=== PATIENT | female | born 1955 | race Caucasian/White ===

== ENCOUNTER 2018-07-10 14:44 | Emergency (ER) | payer MEDICARE, SELFPAY ==
--- NOTE | 2018-07-10 14:56 | NUR.NOTE ---
last might pt developed pain with urination
[2018-07-10 14:58] LABS: Bilirubin Small (Negative); Blood Large (Negative); Clarity Cloudy; Glucose Negative (Negative); Ketones Trace mg/dL (Negative); Leukocyte Esterase Small (Negative); Nitrite Negative (Negative); Urobilinogen 0.2 EU/dL (Up TO 0.2)
[2018-07-10 14:59] VITALS: BP 149/67; PULSE 90; RESP 18; TEMP 37.6; O2SAT 95
--- NOTE | 2018-07-10 15:09 | ED.GENADUL_ITS ---
Discharge Plan Disposition Patient Disposition: HOME Condition: Good Discharge Details Chief Complaint: Urinary Clinical Impression: Acute UTI, Hematuria Primary Care Provider: Michelle Gonzales ED Provider: Maximo Castro Home Meds and New Rx's Prescriptions: New cephalexin [Keflex] 500 mg capsule 500 mg PO BID Qty: 20 RF: 0 Discharge Instructions Instructions: Urinary Tract Infection in Women (ED), Hematuria (ED) Additional Instructions: Please take the antibiotic as directed. If you notice any worsening of your symptoms, or any new symptoms such as vomiting, diarrhea, fever, chills, shortness of breath, chest pain, numbness, weakness, or fainting , please return immediately to the emergency department for reevaluation. Please follow up with your primary care provider as soon as possible for reassessment and reevaluation. As always, it was a pleasure participating in your medical care today. Referrals: Michelle Gonzales MD, [place] [Primary Care Provider] - Medical Decision Making This is a 63-year-old female with a past medical history of fibromyalgia, Lyme disease, and irritable bowel syndrome no history of kidney stones, who presents today for evaluation of mild pressure, increased urinary frequency, and burning with urination starting this morning. She did notice some small blood in her urine. She denies any history of kidney stones. She denies any flank pain, abdominal pain or tenderness. She has no concerning red flags of fever, chills, or tachycardia. Vital signs are reassuring. Urinalysis shows signs and symptoms concerning for urinary tract infection, leuk esterase is small, she does have notable protein, and large blood. I did discuss with the patient further workup, including imaging, at this point the patient clearly states that she would not like any additional imaging or workup in that regard. With signs and symptoms clinically inconsistent with urolithiasis, and acute abdominal pathology, fluid overload, or signs of peripheral edema or severe glomerular nephropathy or nephritis clinically and with the patient requesting no additional workup or imaging, I feel that treatment with antibiotics for UTI is very reasonable and clinically appropriate in this current setting. 3:20 PM Patient's urinalysis does show evidence of blood, as well as small leuk esterase. High-powered field is obstructed by the amount of RBCs. I discussed again with the patient that there may be a malignancy, or other acute pathology causing his hematuria, and the patient has persistent that she does not want any additional imaging or laboratory workup at this time. We discussed risks and benefits of this and the patient understand. Discussed with the patient the imp ortance of close follow-up with her primary care provider at [facility], especially in the setting if her hematuria does not resolve with the antibiotic. Also discussed the importance of close return if she has any continuation or worsening of her symptoms. I have extensively reviewed the treatment plan and discharge instructions with the patient and their family. I have addressed all patient concerns at this time. The patient and family was made aware of what symptoms to monitor for that would warrant a return to the emergency department. Discussed the plan with the patient and family, they demonstrate verbal understanding and agreement with our assessment and plan at this time. HPI General Date/Time Provider Initiated Documentation: 07/10/18 14:45 . HPI Narrative: This is a 63-year-old female with past medical history of irritable bowel disease, Lyme disease, and fibromyalgia who presents today for evaluation of burning in pressure in her groin. Symptoms started this morning. She noted some associated blood tinge in her urine at that time. She has had blood in her urine in the past, but denies any history of kidney stones, currently she states she has no abdominal pain, flank pain, nausea vomiting or change in bowel movements. She denies any hematochezia, melena, hematemesis, or acholic stool. She denies any other complaints at this time. No other modifying factors. Related Data Home Medications Medication Instructions Recorded Confirmed cephalexin [Keflex] 500 mg PO BID #20 cap 07/10/18 Previous Rx's Medication Instructions Recorded cephalexin [Keflex] 500 mg PO BID #20 cap 07/10/18 Allergies Allergy/AdvReac Type Severity Reaction Status Date / Time Sulfa (Sulfonamide Allergy Unverified 07/10/18 15:02 Antibiotics) PCNepinephrine mold, ragweed Allergy Skin Rash Uncoded 07/10/18 15:02 General Stated Complaint: Urinary EZRA: 4 Review of Systems Review of Systems All systems reviewed & are unremarkable except as noted in HPI and below PFSH Social History Smoking/Tobacco Use Status: Current every day Tobacco Type: cigarettes Smoking cigarettes per day: 8 Alcohol Intake: never Drug use: Never Substance use type: does not use Do you feel safe at home: Yes Do you feel safe in your relationship?: Yes Exam Narrative Exam Narrative: 1.Const: Well-nourished, Well-developed, appearing stated age 2.Eyes: PERRL, no conjunctival injection, and symmetrical lids. 3.ENT: Atraumatic external nose and ears. Moist MM. Neck: Symmetric, trachea midline, No thyromegaly. 4.CVS: +S1/S2, No murmurs or gallops. Peripheral pulses 2+ and equal in all extremities. Brisk capillary refill in all extremities. 5.RESP: Unlabored respiratory effort. Clear to auscultation bilaterally. No wheezes rales or rhonchi 6.GI: Soft, Nontender/Nondistended, No hepatosplenomegaly. No guarding or rebound. No flank or CVA tenderness. No guarding or rebound. No pain at McBurney's point, negative Kilgore sign, no suprapubic tenderness. 7.MSK: Normocephalic/Atraumatic, Extremities w/o deformity or ttp No cyanosis or clubbing, Normal movement of all extremities 8.Skin: Warm, Dry. No rashes or lesions. 9.Neuro: quotation checker II-XII grossly intact. Sensation grossly intact, no focal neurologic deficits. 10.Psych: (AAO) x3. Appropriate mood and affect Course Vital Signs Temperature 37.6 C H 07/10/18 14:59 Pulse 90 07/10/18 14:59 Respiratory Rate 18 07/10/18 14:59 Blood Pressure 149/67 H 07/10/18 14:59 Pulse Oximetry 95 07/10/18 14:59 Temperature 37.6 C H 07/10/18 14:59 Temperature Source Skin 07/10/18 14:59 Pulse 90 07/10/18 14:59 Respiratory Rate 18 07/10/18 14:59 Blood Pressure 149/67 H 07/10/18 14:59 Blood Pressure Position Sitting 07/10/18 14:59 Pulse Oximetry 95 07/10/18 14:59 Oxygen Delivery Method Room Air 07/10/18 14:59 Oxygen Flow Rate 0 07/10/18 14:59 Pain Level 3 07/10/18 14:59 Lab/Test Results Lab/Test Results: Laboratory Tests Range/Units 07/10/18 14:50 Urine Color (Yellow) Brown Urine Clarity Cloudy Urine pH (5-8) 6.0 Ur Specific [place] (1.005-1.025) 1.020 Urine Protein (Negative) mg/dL 100 H Urine Ketones (Negative) mg/dL Trace H Urine Blood (Negative) Large H Urine Nitrite (Negative) Negative Urine Bilirubin (Negative) Small H Urine Urobilinogen (Up TO 0.2) EU/dL 0.2 Ur Leukocyte Esterase (Negative) Small H Urine Glucose (Negative) mg/dL Negative
[2018-07-10 15:11] LABS: RBC >50 (0-2)
[2018-07-10 15:13] LABS: C & S Indicated? Color Interference
[2018-07-10 15:26] VITALS: BP 149/67; PULSE 90; RESP 18; TEMP 37.5; O2SAT 95
[2018-07-10] MEDS: Cephalexin 500 MG CAP PO (15:28)
== END 2018-07-10 15:28 | disposition home or self-care (01) ==
PROVIDERS: Emergency Provider Student in an Organized Health Care Education/Training Program; PCP Family Medicine
DX: N39.9 Disorder of urinary system, unspecified (principal); R31.9 Hematuria, unspecified
CPT/HCPCS: 99283; 81003; 81015

== ENCOUNTER 2018-07-15 13:51 | Outpatient (REF) | payer MEDICARE, SELFPAY ==
[2018-07-15 14:54] LABS: Bilirubin Negative (Negative); Blood Large (Negative); Clarity Clear; Glucose Negative (Negative); Ketones Negative (Negative); Leukocyte Esterase Trace (Negative); Nitrite Negative (Negative); Specific Gravity 1.015 (1.005-1.025); Urobilinogen 0.2 EU/dL (Up TO 0.2)
[2018-07-15 15:05] LABS: RBC >50 (0-2)
[2018-07-15 15:06] LABS: C & S Indicated? Yes
== END 2018-07-15 14:11 ==
LOC: LBN 13:51
PROVIDERS: PCP Nurse Practitioner Family; Visit Provider Nurse Practitioner Family
DX: R31.9 Hematuria, unspecified (principal)
CPT/HCPCS: 81003; 81015; 87086

== ENCOUNTER 2018-07-22 15:46 | Outpatient (CLI) | payer MEDICARE, SELFPAY ==
[2018-07-22 18:19] LABS: Abs Immature Grans 0.02 k/cumm (0.0-0.09); Absolute Basophil Count 0.04 k/cumm (0.0-0.2); Absolute Eosinophil Count 0.14 k/cumm (0.0-0.7); Absolute Lymphocyte Count 2.86 k/cumm (1.2-3.4); Absolute Monocyte Count 0.77 k/cumm (0.11-0.7); Absolute Neutrophil Count 5.35 k/cumm (1.2-6.7); Basophils % 0.4; Eosinophils % 1.5; HCT 44.4 % (36.0-46.0); HGB 15.1 g/dL (12.0-15.5); Immature Grans % 0.2; Lymphocytes % 31.2; Mean Corpuscular Hemoglobin 32.2 pg (27.0-33.0); Mean Corpuscular Volume 94.7 fL (80-95); Mean Platelet Volume 10.4 fL (8.0-11.0); Monocytes % 8.4; Neutrophils % 58.3; Platelet Count 337 x1000/uL (130-400); RBC 4.69 m/cumm (4.00-5.20); RBC Distribution Width 13.4 % (11.7-14.6); White Blood Cell Count 9.18 k/cumm (4.4-10.8)
[2018-07-22 18:43] LABS: ALT 22 U/L (12-78); AST 17 U/L (15-37); Albumin 4.3 g/dL (3.4-5.0); Alkaline Phosphatase 90 U/L (46-116); Anion Gap 12.2 mmol/L (3-11); BUN 14 mg/dL (7-18); Bilirubin, Total 0.5 mg/dL (0.2-1.0); CO2 27.8 mmol/L (21.0-32.0); CREATININE 0.86 mg/dL (0.55-1.02); Calcium 9.8 mg/dL (8.5-10.1); Chloride 101 mmol/L (98-107); Cholesterol 235 mg/dL (50-200); Glucose 102 mg/dL (70-100); HDL Cholesterol 57 mg/dL (40-60); LDL CHOLESTEROL 157 mg/dL (<100); Potassium 3.5 mmol/L (3.5-5.1); Sodium 141 mmol/L (136-145); TSH 1.23 uIU/mL (0.358-3.74); Total Protein 7.5 g/dL (6.4-8.2); Triglyceride 87 mg/dL (30-150)
[2018-07-22 19:12] LABS: Hemoglobin A1C 5.5 % (4.5-6.2)
[2018-07-22 19:19] LABS: FREE T4 1.09 ng/dL (0.76-1.46)
== END 2018-07-22 16:06 ==
PROVIDERS: PCP Nurse Practitioner Family; Visit Provider Nurse Practitioner Family
DX: R31.9 Hematuria, unspecified (principal); R63.4 Abnormal weight loss; Z00.00 Encounter for general adult medical examination without abnormal findings; R73.09 Other abnormal glucose; E78.89 Other lipoprotein metabolism disorders
CPT/HCPCS: 36415; 80053; 80061; 83721; 83036; 84439; 84443; 85025; 87086

== ENCOUNTER 2018-07-22 20:07 | Outpatient (REF) | payer MEDICARE, SELFPAY | END 2018-07-22 20:27 | LOC: LBN 20:07 | PROVIDERS: PCP Nurse Practitioner Family; Visit Provider Nurse Practitioner Family | DX: R31.9 Hematuria, unspecified (principal) | CPT/HCPCS: 87086 ==

== ENCOUNTER 2018-07-28 00:22 | Outpatient (CLI) | payer MEDICARE, SELFPAY ==
[2018-07-28] MEDS: Omnipaque 350 MG/ML 100 ML BTL IJ (10:28)
--- NOTE | 2018-07-28 10:29 | DI.CT_ITS ---
SYMPTOM/DIAGNOSIS: HEMATURIA, WT LOSS, R31.9, R63.[address]: The exam was performed according to the usual protocol utilizing 100 cc's of Omnipaque 350 and oral contrast. Images obtained through the lung bases are unremarkable. Liver, spleen and pancreas appear normal. There are apparent multiple gallstones. No gross gallbladder wall thickening. No biliary dilatation. No pericholecystic fluid collection. Abdominal aorta is of normal diameter and no major vascular abnormality is seen. No significant abdominal wall hernia is seen. No abdominal or pelvic adenopathy is seen. Appendix is normal. No evidence of diverticulitis. No bowel obstruction. Adrenals are unremarkable in appearance bilaterally. There is a multi part staghorn calculus on the left. No definite right renal calcification identified. There is question of slight bilateral hydronephrosis with no definite ureteral calcification identified. Urinary bladder grossly unremarkable. [employer] structures appear intact. CONCLUSION: 1. Left staghorn calculus. 2. Question mild bilateral hydronephrosis, non calculus ureteral obstruction not excluded. 3. Cholelithiasis.
== END 2018-07-28 00:42 ==
PROVIDERS: PCP Nurse Practitioner Family; Visit Provider Nurse Practitioner Family
DX: R63.4 Abnormal weight loss (principal); R31.9 Hematuria, unspecified; N20.0 Calculus of kidney; N13.30 Unspecified hydronephrosis; K80.20 Calculus of gallbladder without cholecystitis without obstruction
CPT/HCPCS: 74177; J3490

== ENCOUNTER 2022-12-22 16:16 | Outpatient (REF) | payer MEDICARE, SELFPAY | END 2022-12-22 16:17 | disposition home or self-care (01) | LOC: LBN 16:16 | PROVIDERS: PCP Nurse Practitioner Family; Visit Provider Nurse Practitioner Family | DX: N39.0 Urinary tract infection, site not specified (principal); R31.9 Hematuria, unspecified | CPT/HCPCS: 87077; 87086; 87186 ==

== ENCOUNTER 2022-12-31 15:13 | Inpatient (IN) | payer MEDICARE, SELFPAY ==
[2022-12-31] VITALS (29 sets, daily range): BP systolic 78–154; BP diastolic 59–99; PULSE 70–94; RESP 18–20; TEMP 37; O2SAT 96–99
--- NOTE | 2022-12-31 16:45 | DI.CT_ITS ---
Exam(s) CT ABDOMEN PELVIS WO EXAM: CT ABDOMEN PELVIS WO CLINICAL HISTORY: pain on palpation, weight loss. TECHNIQUE: Imaging Protocol: Axial computed tomography images with coronal and sagittal reformatted images were created and reviewed. Oral: / no COMPARISON: CT CT ABDOMEN PELVIS W from 07/28/2018 FINDINGS: Exam somewhat limited by motion. ABDOMEN: Lung Bases: Lungs clear where visualized. Moderate size hiatal hernia, not fully included on the ex am. Question of thickening of the fundus of the stomach, not fully included on the exam. Liver: Normal density. No measurable mass. Gallbladder and biliary tract: Cholelithiasis. No biliary dilatation. No abnormal gallbladder dis tention or wall thickening. Pancreas: Normal density, no abnormal calcifications or inflammatory process. Spleen: Normal. Kidneys: Normal size, contour and axis. Large left staghorn calculus seen on prior exam.. Multiple s mall small stones in the medullary regions of both kidneys. No masses seen. Adrenal glands: Mild thickening and nodularity of the left adrenal gland which appears new from prior . Lymph nodes: Calcified lymph nodes at the level of the garett hepatis, unchanged from prior. Abdominal Aorta: Severe atherosclerotic changes. Mild dilatation of the distal aorta to 2.4 cm, cindi uring 1.7 cm on the previous exam. Proximal iliac arteries heavily calcified. PELVIS: Bladder: Symmetric distention, no gross wall thickening. Bowel: No obstruction or bowel wall thickening. Appendix normal. Diverticulosis. No evidence of div erticulitis. Peritoneal cavity: No ascites, collection or mesenteric inflammatory response. Soft tissues: Enlarge d left greater trochanteric bursa with peripheral calcification. Reproductive organs: Within normal limits. Bones: Bones appear osteoporotic. There is mild spondylolisthesis at L5-S1 without spondylolysis, se condary to degenerative changes unchanged from prior.. IMPRESSION: Exam somewhat limited by motion. Moderate size hiatal hernia not fully included on exam. Question of thickening of the fundus versus nondistention. Large left staghorn calculus, unchanged. Bilateral medullary nephrocalcinosis again noted. Cholelithiasis. No evidence of acute cholecystitis. Mild dilatation of the distal aorta 2.5 cm, new since prior. Left greater trochanteric calcific bursitis. RADIATION DOSE DELIVERED: 394.45mGy.cm Total DLP DATA REPOSITORY: All CT scans at this facility are submitted to the National Radiology Data Registry (NRDR) Dose Index Registry (DIR) with the [employer] ([employer]). RADIATION OPTIMIZATION: All CT scans at this facility use at least one of these dose optimization te chniques: automated exposure control; mA and/or kV adjustment per patient size (includes targeted exa ms where dose is matched to clinical indication); or iterative reconstruction.
--- NOTE | 2022-12-31 16:45 | DI.RAD_ITS ---
Exam(s) XR CHEST 2V PA LATERAL EXAM: XR CHEST 2V PA LATERAL CLINICAL HISTORY: MS change, weight loss TECHNIQUE: 2D digital imaging was performed. COMPARISON: No exams were available for comparison FINDINGS: HEART: Normal size. Aorta: Not dilated. Calcified. PULMONARY VASCULATURE: Normal. LUNGS: Scarring again noted in the lingula. Hyperinflation. PLEURAL SPACE: No pleural effusion or pneumothorax. BONE:Bones appear osteopenic. Midthoracic compression fractures. Old right rib fracture. Degenerat luigi changes noted in the shoulders. IMPRESSION: No acute abnormality. DATA REPOSITORY: RADIATION DOSE DELIVERED:
--- NOTE | 2022-12-31 16:45 | RT.EKG_ITS ---
APPROVED REPORT Exam: Resting ECG Reason for Exam: MS change Patient Location: E HR:98 bpm ECG Measurements Heart Rate 98 AXIS WI 140 P 83 QRSd 86 QRS 124 QT 317 T 68 QTc 404 Conclusion Sinus rhythm...normal P axis, V-rate 60- 99 WI depression inferiorly, vague ST elevation OBED pool
--- NOTE | 2022-12-31 16:56 | W.ED.GENAD ---
Discharge Plan Disposition Patient Disposition: Admit to [facility] Discharge Details Clinical Impression: Dehydration, Urinary tract infection Primary Care Provider: Sangeeta Appiah ED Provider: Shelley Hope Home Meds and New Rx's Prescriptions: No Action No Known Home Meds Medical Decision Making Family has been updated on the patient's test results. Patient is sleeping soundly. They said after the first liter of fluid the patient seemed more alert and appropriate. The patient has a high troponin but no evidence of acute STEMI on EKG. She does have some scooping inferiorly. Family has said they really do not think that the patient would want to be cast or transfer to another hospital. They have had a lot of discussion recently regarding the patient's status. We also talked about advanced directives. Medical Records Medical records reviewed: Yes I reviewed the patient's medical records. Imaging Data Radiologic Study: Imaging: X-Ray and CT Scan Radiologist's impression: PROCEDURE INFORMATION: Exam: XR Chest Exam date and time: 12/31/2022 6:34 PM Age: 67 years old Clinical indication: Patient HX: Ms change, weight loss TECHNIQUE: Imaging protocol: Radiologic exam of the chest. Views: 2 views. COMPARISON: CT ABDOMEN PELVIS W 07/28/2018 10:13 AM FINDINGS: Lungs: Severe hyperinflation consistent underlying emphysema or COPD. No acute infiltrates. Linear opacifications left lower lung field consistent with scar versus atelectasis. Pleural spaces: No pleural effusion. Heart/Mediastinum: Normal heart size. Bones/joints: Old healed right rib fractures. Degenerative thoracic spine. Old midthoracic level compression fractures.. IMPRESSION: 1. ? Emphysema/COPD. 2. ? Linear opacification left lower lung field suggesting lingular atelectasis versus scar 3. ? No pleural effusions. No infiltrates or edema. Dictated and Authenticated by: Hugo Reyez MD. Ordering:HAMMAD Rosa MD Exam(s) PROCEDURE INFORMATION: Exam: CT Abdomen And Pelvis Without Contrast Exam date and time: 12/31/2022 6:38 PM Age: 67 years old Clinical indication: Patient HX: Ms change, weight loss TECHNIQUE: Imaging protocol: Computed tomography of the abdomen and pelvis without contrast. COMPARISON: CT ABDOMEN PELVIS W 07/28/2018 10:13 AM FINDINGS: Lungs: Lung bases are clear. Pleural spaces: No pleural effusion. Heart: Normal heart size. No pericardial effusion. No coronary artery atherosclerotic calcium is visible. Liver: The liver is normal in size, contour and attenuation. Gallbladder and bile ducts: Multiple gallstones are noted within the gallbladder. Multiple calcifications are noted in the region of the garett hepatis. Significance uncertain. There is some motion artifact degradation of image quality. These might represent calcified mesenteric lymph nodes. These are suggested 07/28/2018, but appear larger on current evaluation. Recommend clinical correlation. Pancreas: Normal. No ductal dilation. Spleen: The spleen is normal in size, contour and attenuation. Adrenal glands: Bilateral adrenal nodularity. This is a new finding in comparison with previous evaluation. Significance uncertain. More prominent on the left. Largest adrenal nodule is the medial limb of the left adrenal gland measuring 11 x 16 mm. This is nonspecific in appearance. Can not exclude a metastatic process. Interval development of adrenal adenomas can not be excluded. Right adrenal gland with thickening of the limbs. No rita nodular type fullness. Kidneys and ureters: Extensive left-sided renal calculus disease. Staghorn calculi within the renal pelvis. Multiple calices with calculi. Right kidney with calcifying renal pyramids which could represent a process such as medullary sponge kidney or nephrocalcinosis. No acute obstructive uropathy. No acute renal inflammation. Stomach and bowel: No acute gastric changes. There is a large sliding hiatal hernia. No acute features. Appendix: A non inflamed appendix is identified. See series 3: Images 38 through 33. Intraperitoneal space: No free fluid. No free air. Vasculature: Aortoiliac atherosclerotic calcium. Distal abdominal aortic aneurysmal dilatation at 2.5 x 2.5 cm. No acute features of aneurysmal change. Study is limited without contrast. Lymph nodes: Calcified lymph nodes in the garett hepatis region. No retroperitoneal lymphadenopathy. Urinary bladder: Urinary bladder is unremarkable in appearance. No wall thickening. No intravesicular calculi. No intravesicular gas. Reproductive: The uterus and adnexa are unremarkable in appearance. There are no dominant adnexal cysts or masslike features. There are no inflammatory features. No uterine mass evident. Bones/joints: Degenerative lumbar spine. Degenerative L5 anterolisthesis on S1 6 mm. Soft tissues: Abdominal wall soft tissues are unremarkable. There is distention of the left hip bursa overlying the greater trochanter. There is calcium within the bursal space. This is consistent with a left hip calcific bursitis. This is a new finding since 2019. There is also calcium within the proximal left sartorius muscle at the musculotendinous junction. IMPRESSION: 1. ? Large hiatal hernia. No acute features. 2. ? Adrenal nodularity more prominent on left than right. This is new since 2019. Significance uncertain. Can not exclude metastatic change to the adrenal glands. Recommend clinical correlation with any known malignancy. 3. ? Left renal staghorn calculi. No acute renal inflammation. Right kidney with calcifications of the renal pyramids which could represent a medullary sponge kidney or nephrocalcinosis process. 4. ? Atherosclerotic abdominal aorta and mesenteric vessels. Distal abdominal aorta aneurysmal dilatation at 2.5 cm. 5. ? Degenerative lumbar spine changes. 6. ? Left hip trochanteric calcified bursitis. 7. ? Proximal left sartorius muscle musculotendinous calcification suggesting chronic inflammation. 8. ? Gallstone disease. 9. ? Calcifications in the garett hepatis suggesting lymph nodes. Slightly progressive in their size and degree of calcification since 2019. Dictated and Authenticated by: Hugo Reyez MD. Ordering:HAMMAD Rosa MD Lab Data Lab results reviewed: Yes I reviewed the patient's lab results. Lab results narrative: The patient's sodium is 128 with a bicarb of 93 and a BUN and creatinine of 38 and 2.5. Anion gap is 12.5. Calcium is 12.7. Alk phos is 137, ammonia 34, albumin 3.2, troponin 943, UA with 30 of protein, moderate leuk esterase, 20-50 white blood cells, many epis and bacteria. Patient's second troponin is 959. HPI General Date/Time Provider Initiated Documentation: 12/31/22 16:18. HPI Narrative: This 67-year-old female patient arrives with her daughter and son for evaluation. The patient has not seen a doctor since before [facility]. She has intermittently been failing over the years. In the last 6 months and then 1 month she is unable to toilet herself or feed herself. She had altered mental status last week and was diagnosed with a urinary tract infection. This was done at [facility]. Her urine evidently had blood in it and was foul-smelling. Patient has a history of severe rheumatoid arthritis and IBS. She was a smoker previously. Last tremendous amount of weight and only weighs 41 kg. Her blood pressures are typically in the 80s or quite low at home. The patient denies chest or abdominal pain. She complains of back pain but this is chronic for her. She has had no fever or URI symptoms. Her urine looks better than it did last week. Related Data Home Medications Medication Instructions Recorded Confirmed Unknown [No Known Home Meds] 12/31/22 12/31/22 Allergies Allergy/AdvReac Type Severity Reaction Status Date / Time Sulfa (Sulfonamide Allergy Unverified 12/31/22 15:32 Antibiotics) PCNepinephrine mold, ragweed Allergy Skin Rash Uncoded 12/31/22 15:32 General Stated Complaint: GenMedical EZRA: 3 Review of Systems Unobtainable due to (ROS obtained mostly from family) Constitutional Constitutional: Denies chills, Denies fever(s), Denies headache(s), Denies weakness and Reports weight loss Eyes Eyes: Denies diplopia and Reports other (no redness) ENT Ears, Nose, Mouth, and Throat: Denies otalgia, Denies headache(s), Denies nasal congestion, Denies nasal discharge, Denies neck pain and Denies sore throat Cardiovascular Cardiovascular: Denies chest pain, Denies palpitations and Denies dyspnea Respiratory Respiratory: Denies cough and Denies dyspnea Gastrointestinal Gastrointestinal: Denies abdominal pain, Denies diarrhea, Denies nausea and Denies vomiting Genitourinary Genitourinary: Denies dysuria Musculoskeletal Musculoskeletal: Denies myalgias, Denies muscle weakness, Denies neck pain, Denies numbness and Reports other (edema) Comments: Has chronic back pain and RA Integumentary/Breasts Skin/Breast: Denies change in pigmentation and Denies rash Neurologic Neurologic: Denies headache(s), Denies numbness and Denies weakness Endocrine Endocrine: Denies palpitations PFSH All Active Problems Elevated troponin level not due myocardial infarction (Acute) Dehydration (Acute) Urinary tract infection (Acute) Altered mental status (Acute) Failure to thrive in adult (Acute) Rheumatoid arthritis (Chronic) Declines medical treatment. Last saw [facility] in 2004 Nodular scleritis of left eye (Chronic) Hyperlipidemia (Chronic) IBS (irritable bowel syndrome) (Chronic) Staghorn renal calculus (Acute ~07/2018) Cigarette smoker (Chronic) Medical History (Updated 12/31/22 @ 22:07 by Yaniv Chavez) Hematuria (~07/2018) Lyme disease Family History Mother , at 70 Liver cancer Hypertension Substance abuse Psoriatic arthritis Father , at 76 Alcohol abuse Heart disease Pulmonary fibrosis Rheumatoid arthritis Hypertension Sister Alcohol abuse Hyperlipidemia Sister Depression Brother Alcohol abuse Throat cancer Heart disease Myocardial infarction Son , at 36, fell of bridge while intoxicated No problems noted. Son Renal calculi Hypertension Son No problems noted. Daughter Anxiety Maternal Grandfather , at 64 Mesothelioma Maternal Grandmother , at 50 Alcohol abuse Heart disease Paternal Grandfather , at 78 No problems noted. Paternal Grandmother , at 67 of [place] Heart disease Myocardial infarction Social History Smoking/Tobacco Use Status: Current-Occasional Tobacco Type: cigarettes Quit status: considering quitting Smoking risk assessment performed?: Yes Alcohol Intake: never Drug use: Never Substance use type: does not use Caregiver/Support person: No Household members: children Housing: house Communication Needs: None Do you need help understanding health information?: Never Pets and animals: No Sexually active: No Do you think of yourself as: straight/heterosexual Current gender identity: female What is your relationship status?: How often do you talk on the phone with friends or family?: once per week How often do you get together with friends or relatives?: three or more times per week How often do you attend anabaptist or islam services?: 4 or more times per year Do you belong to any clubs or organized social groups?: no Panel score (0-1 are the most socially isolated patients): 2 What type of physical activity do you participate in: walking Duration: 15-30 minutes/day Frequency: daily Wendy/Sikhism: Yarsani Special wendy needs: No Seatbelt use: always Helmet use: Yes Helmet use: always Drive intox or ride w/intox non cdl driver: No Do you feel safe at home: Yes Do you feel safe in your relationship?: Yes Female Reproductive History Menstrual Menopause type: natural History History 4 Para 4 Hx # Term Pregnancies Multiple births Hx # Pregnancies Ectopic pregnancies AB induced Hx Number of Living Children 3 AB spontaneous Exam Const General: no acute distress, No well groomed and not in acute distress Nutritional Appearance: cachectic Orientation: alert and oriented x3 Other: Unkept HENMT Head: normocephalic and atraumatic Ears: external ears normal Mouth: oropharynx normal and moist mucous membranes abnormal (very dry) Teeth and gingiva: poor dentition Throat: posterior oropharynx normal Eyes Conjunctivae: conjunctivae normal Neck Neck: full ROM and supple Chest Chest: normal inspection of the chest Resp Effort & Inspection: normal respiratory effort Auscultation: clear to auscultation bilaterally Cardio Rate: regular rate Rhythm: regular rhythm Heart Sounds: no murmurs and no rubs GI Inspection: normal to inspection Palpation: soft and tender (Diffuse tenderness to palpation without guarding or rebound) Auscultation: normal bowel sounds Skin General skin exam: no rashes or lesions noted and other (pink, warm, dry) Neuro General: patient alert, patient awake and patient oriented x3 Speech: speech normal Motor: other (DOMINGUEZ) Sensory Exam: no sensory deficits noted Extrem General: normal to inspection, full ROM and pedal edema present Psych Mental Status: mental status grossly normal Speech and Movement: speech and movement normal Affect: normal affect Course Vital Signs Vital signs: Vital Signs Temperature 37.0 C 12/31/22 15:26 Pulse 70 12/31/22 15:26 Respiratory Rate 20 12/31/22 15:26 Blood Pressure 78/59 L 12/31/22 15:26 Pulse Oximetry 99 12/31/22 15:26 Temperature 37.0 C 12/31/22 15:26 Pulse 70 12/31/22 15:26 Respiratory Rate 20 12/31/22 15:26 Respiratory Effort Normal 12/31/22 15:33 Blood Pressure 121/72 12/31/22 16:46 Blood Pressure Position Sitting 12/31/22 15:26 Pulse Oximetry 99 12/31/22 15:26 Oxygen Delivery Method Room Air 12/31/22 15:26 Oxygen Flow Rate 0 12/31/22 15:26
[2022-12-31 17:30] LABS: BE (Venous) -3 mmol/L (-2-3); HCO3 (Venous) 22 mmol/L (23-28); O2 Sat (Venous) 85 %; TCO2 (Venous) 20 mmol/L (24-29); pCO2 (Venous) 36 mmHg (41-51); pH (Venous) 7.39 (7.31-7.41); pO2 (Venous) 50 mmHg
[2022-12-31] MEDS: Normal Saline 1,000 ML 1000 ML IV (17:30)
[2022-12-31 17:31] LABS: Abs Immature Grans 0.31 10^3/uL (0.0-0.06); Absolute Lymphocyte Count 2.56 10^3/uL (1.2-3.4); Absolute Monocyte Count 1.04 10^3/uL (0.1-0.8); Basophils % 0.7; Eosinophils % 1.1; Immature Grans % 2.1; MCHC 34.2 % (32.0-36.0); MCV 88 fL (80-95); Monocytes % 6.9; Neutrophils % 72.2; Platelet Count 469 10^3/uL (130-400); RBC 4.34 10^6/uL (3.93-5.22); RDW 13.8 % (11.7-14.6); RDW-SD 43.8 fL; WBC 15.06 10^3/uL (4.4-10.8)
[2022-12-31 17:34] LABS: Absolute Basophil Count 0.11 10^3/uL (0.0-0.2); Absolute Eosinophil Count 0.17 10^3/uL (0.0-0.7); Absolute Neutrophil Count 10.87 10^3/uL (1.2-6.7)
[2022-12-31 17:41] LABS: Ammonia 34 umol/L (11-32)
[2022-12-31 17:55] LABS: ALT 15 U/L (14-59); AST 18 U/L (15-37); Albumin 3.2 g/dL (3.4-5.0); Alkaline Phosphatase 137 U/L (46-116); Anion Gap 12.5 mmol/L (3-11); BUN 38 mg/dL (7-18); Bilirubin, Total 0.3 mg/dL (0.2-1.0); CO2 22.5 mmol/L (21.0-32.0); CREATININE 2.5 mg/dL (0.55-1.02); Chloride 93 mmol/L (98-107); Estimated GFR 20.31 (mL/min/1.73m2); Glucose 98 mg/dL (74-106); Magnesium 1.8 mg/dL (1.8-2.4); Potassium 4.5 mmol/L (3.5-5.1); Sodium 128 mmol/L (136-145); Total Protein 7.9 g/dL (6.4-8.2)
[2022-12-31 17:57] LABS: Calcium 12.7 mg/dL (8.5-10.1); Troponin I 943 ng/L (<or=60)
[2022-12-31 18:20] LABS: Bilirubin Negative (Negative); Blood Trace-intact (Negative); Clarity Sl Cloudy (Clear); Glucose Negative (Negative); Ketones Negative (Negative); Leukocyte Esterase Moderate (Negative); Nitrite Negative (Negative); Specific Gravity 1.015 (1.005-1.025); Urobilinogen 0.2 mg/dL (Up to 0.2)
[2022-12-31 18:26] LABS: Bacteria Many HPF (Negative); C & S Indicated? No/Sq. Contamination; Casts Negative LPF (Negative); Crystals Negative HPF (Negative); Epithelial Cells Many HPF (Negative); Mucus Trace (Negative); RBC 0-2 HPF (0-2); WBC 20-50 HPF (0-5)
--- NOTE | 2022-12-31 18:57 | DI.VRAD_ITS ---
PROCEDURE INFORMATION: Exam: XR Chest Exam date and time: 12/31/2022 6:34 PM Age: 67 years old Clinical indication: Patient HX: Ms change, weight loss TECHNIQUE: Imaging protocol: Radiologic exam of the chest. Views: 2 views. COMPARISON: CT ABDOMEN PELVIS W 07/28/2018 10:13 AM FINDINGS: Lungs: Severe hyperinflation consistent underlying emphysema or COPD. No acute infiltrates. Linear opacifications left lower lung field consistent with scar versus atelectasis. Pleural spaces: No pleural effusion. Heart/Mediastinum: Normal heart size. Bones/joints: Old healed right rib fractures. Degenerative thoracic spine. Old midthoracic level compression fractures.. IMPRESSION: 1. Emphysema/COPD. 2. Linear opacification left lower lung field suggesting lingular atelectasis versus scar 3. No pleural effusions. No infiltrates or edema. Dictated and Authenticated by: Hugo Reyez MD. Ordering:HAMMAD Rosa MD
--- NOTE | 2022-12-31 19:22 | DI.VRAD_ITS ---
PROCEDURE INFORMATION: Exam: CT Abdomen And Pelvis Without Contrast Exam date and time: 12/31/2022 6:38 PM Age: 67 years old Clinical indication: Patient HX: Ms change, weight loss TECHNIQUE: Imaging protocol: Computed tomography of the abdomen and pelvis without contrast. COMPARISON: CT ABDOMEN PELVIS W 07/28/2018 10:13 AM FINDINGS: Lungs: Lung bases are clear. Pleural spaces: No pleural effusion. Heart: Normal heart size. No pericardial effusion. No coronary artery atherosclerotic calcium is visible. Liver: The liver is normal in size, contour and attenuation. Gallbladder and bile ducts: Multiple gallstones are noted within the gallbladder. Multiple calcifications are noted in the region of the garett hepatis. Significance uncertain. There is some motion artifact degradation of image quality. These might represent calcified mesenteric lymph nodes. These are suggested 07/28/2018, but appear larger on current evaluation. Recommend clinical correlation. Pancreas: Normal. No ductal dilation. Spleen: The spleen is normal in size, contour and attenuation. Adrenal glands: Bilateral adrenal nodularity. This is a new finding in comparison with previous evaluation. Significance uncertain. More prominent on the left. Largest adrenal nodule is the medial limb of the left adrenal gland measuring 11 x 16 mm. This is nonspecific in appearance. Can not exclude a metastatic process. Interval development of adrenal adenomas can not be excluded. Right adrenal gland with thickening of the limbs. No rita nodular type fullness. Kidneys and ureters: Extensive left-sided renal calculus disease. Staghorn calculi within the renal pelvis. Multiple calices with calculi. Right kidney with calcifying renal pyramids which could represent a process such as medullary sponge kidney or nephrocalcinosis. No acute obstructive uropathy. No acute renal inflammation. Stomach and bowel: No acute gastric changes. There is a large sliding hiatal hernia. No acute features. Appendix: A non inflamed appendix is identified. See series 3: Images 38 through 33. Intraperitoneal space: No free fluid. No free air. Vasculature: Aortoiliac atherosclerotic calcium. Distal abdominal aortic aneurysmal dilatation at 2.5 x 2.5 cm. No acute features of aneurysmal change. Study is limited without contrast. Lymph nodes: Calcified lymph nodes in the garett hepatis region. No retroperitoneal lymphadenopathy. Urinary bladder: Urinary bladder is unremarkable in appearance. No wall thickening. No intravesicular calculi. No intravesicular gas. Reproductive: The uterus and adnexa are unremarkable in appearance. There are no dominant adnexal cysts or masslike features. There are no inflammatory features. No uterine mass evident. Bones/joints: Degenerative lumbar spine. Degenerative L5 anterolisthesis on S1 6 mm. Soft tissues: Abdominal wall soft tissues are unremarkable. There is distention of the left hip bursa overlying the greater trochanter. There is calcium within the bursal space. This is consistent with a left hip calcific bursitis. This is a new finding since 2019. There is also calcium within the proximal left sartorius muscle at the musculotendinous junction. IMPRESSION: 1. Large hiatal hernia. No acute features. 2. Adrenal nodularity more prominent on left than right. This is new since 2019. Significance uncertain. Can not exclude metastatic change to the adrenal glands. Recommend clinical correlation with any known malignancy. 3. Left renal staghorn calculi. No acute renal inflammation. Right kidney with calcifications of the renal pyramids which could represent a medullary sponge kidney or nephrocalcinosis process. 4. Atherosclerotic abdominal aorta and mesenteric vessels. Distal abdominal aorta aneurysmal dilatation at 2.5 cm. 5. Degenerative lumbar spine changes. 6. Left hip trochanteric calcified bursitis. 7. Proximal left sartorius muscle musculotendinous calcification suggesting chronic inflammation. 8. Gallstone disease. 9. Calcifications in the garett hepatis suggesting lymph nodes. Slightly progressive in their size and degree of calcification since 2019. Dictated and Authenticated by: Hugo Reyez MD. Ordering:HAMMAD Rosa MD
[2022-12-31] MEDS: Normal Saline 1,000 ML 100 ML IV (19:25)
[2022-12-31] MEDS: cefTRIAXone 1 GM/50 ML BAG IVPB (19:28)
[2022-12-31] MEDS: Aspirin 325 MG TAB PO (19:29)
[2022-12-31 20:49] LABS: Troponin I 959 ng/L (<or=60)
--- NOTE | 2022-12-31 22:03 | HPE_ITS ---
Date of service: 12/31/22 Time of Service: 22:04 Assessment and Plan Assessment and plan (1) Dehydration: Start date: 12/31/22 Status: Acute Assessment and plan: This is a 67-year-old lady who has had deterioration in health over the last 3 years especially over the last 3 months and more recently this last month with weight loss down to 80 pounds. She is refusing to eat or drink consistently though she lives with her daughter who is attempting to take care of her as best the patient will allow. She does follow daily but is on no inhalers and takes no medical therapy other than Excedrin for arthritic pain. She has severe rheumatoid arthritis with deformities of her hands especially and this is worsened with her immobility. She is a full code at this time but patient care and possibly hospice care can be discussed if patient does not have a treatable mood disorder and simply wants to give. She may have depression and this need to be investigated prior to changing CODE STATUS or considering hospice. She expresses that she wants to live but makes no effort to change. IV hydration will help her slight confusion hopefully but also will take care of her hypercalcemia. She also appears to have had elevated troponin secondary to her acute dehydrated state and elevated creatinine but these will be trended. Telemetry for now. There are many chronic processes going on in and her abdomen but no overt sign of malignancy though there are some abnormal adrenal gland findings. This can be reviewed as patient's wishes are reviewed as to being palliative care versus more aggressive care with treatment of possible depression. (2) Urinary tract infection: Start date: 12/31/22 Status: Acute Assessment and plan: Patient has had no fevers but does have an elevated WBC and foul-smelling urine. Urine culture and treat with Rocephin 1 g daily IV. Follow-up culture report and pathogen sensitivities for converted to oral therapy eventually. (3) Hypercalcemia: Start date: 12/31/22 Status: Acute Assessment and plan: Most likely associated with dehydration patient to be given aggressive IV fluids and follow-up calcium level with ionized calcium in the morning. (4) Elevated troponin level not due myocardial infarction: Start date: 12/31/22 Status: Acute Assessment and plan: Patient was given a full dose aspirin in the ED and will continue baby aspirin daily. I will start a statin and check lipid profile in the morning. Tobacco use does put her at risk but she has never had active heart disease and no symptoms upon presentation to suggest cardiac ischemia. Cardiac monitoring for now with patient being a full code. 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 She needs to be reviewed for possible depression which may be treatable to help her have better appetite and eat and drink. If she has decided not to continue to eat and drink then palliative care needs to be reviewed with family to help her keep comfortable at home if she wishes to shut down. It appears that the son and daughter are not quite ready for this decision and are open to investigating possible depression as a cause of her problem. It appears that her confusion and short-term memory loss recently was more from the stress of being dehydrated and ill rather than a progressive dementia process. She does miss her and still grieves on the anniversary of the staff yearly. History of Present Illness History of Present Illness Chief Complaint: Confusion with weight loss and decreased intake Narrative: This is a 67-year-old lady who has been chronically deteriorating over the last 3 years worsening the last 3 months to 1 month and then was diagnosed with UTI recently initiated antibiotics but not improving. She was brought to the ED by family after attempting a visit at her PCPs office where she was told to bring her to the ED for evaluation. She lives with her daughter who has been trying to have the patient eat and drink better but have not succeeded with the patient stating that she wants to get better but then not participating in self-care. She is unkempt but choice and mostly stays in bed watching TV. She did lose her spouse 7 years ago and each year at the anniversary of his she seems more depressed. She has not been expressing suicidal thoughts but does refuse self- care and appears to be frustrated in her family with waxing and waning wishes. She is a full code at this time but living will status is being rediscussed. The patient chronically has had poor dentition and this has not impeded her eating and drinking. She does smoke daily and continues though this is decreased. The patient offers no further history and the family is concerned about her weight loss from around 130 pounds down to 80 pounds. She has never had a cardiac event within the ED was found to have elevated troponins along with dehydration with an elevated creatinine BUN as well as elevated alkaline phosphatase which may be secondary to her sedentary lifestyle recently. She has had no peripheral edema are complaints of shortness of breath. She did have foul-smelling urine but denies any other bowel or complaints. She does have a depressed mood and did isolate herself since COVID which worsened her depres adrián and lifestyle changes being withdrawn and not going out in public. She has had severe rheumatoid arthritis with deformities of her upper extremities mostly and she has been wasting away with muscle strength and became more stiff with decreased activity and movement. She takes no medications except Excedrin for pain and is on no chronic medical therapy. Review of Systems Narrative: 13 point review of systems otherwise unrevealing or stable. 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 Last saw [facility] in 2004 Nodular scleritis of left eye (Chronic) Hyperlipidemia (Chronic) IBS (irritable bowel syndrome) (Chronic) Staghorn renal calculus (Acute ~07/2018) Cigarette smoker (Chronic) Medical History (Updated 12/31/22 @ 23:38 by Yaniv Chavez) Hematuria (~07/2018) Lyme disease Family History Mother , at 70 Liver cancer Hypertension Substance abuse Psoriatic arthritis Father , at 76 Alcohol abuse Heart disease Pulmonary fibrosis Rheumatoid arthritis Hypertension Sister Alcohol abuse Hyperlipidemia Sister Depression Brother Alcohol abuse Throat cancer Heart disease Myocardial infarction Son , at 36, fell of bridge while intoxicated No problems noted. Son Renal calculi Hypertension Son No problems noted. Daughter Anxiety Maternal Grandfather , at 64 Mesothelioma Maternal Grandmother , at 50 Alcohol abuse Heart disease Paternal Grandfather , at 78 No problems noted. Paternal Grandmother , at 67 of [place] Heart disease Myocardial infarction Social History Smoking/Tobacco Use Status: Current-Occasional Tobacco Type: cigarettes Quit status: considering quitting Smoking risk assessment performed?: Yes Alcohol Intake: never Drug use: Never Substance use type: does not use Caregiver/Support person: No Household members: children Housing: house Communication Needs: None Do you need help understanding health information?: Never Pets and animals: No Sexually active: No Do you think of yourself as: straight/heterosexual Current gender identity: female What is your relationship status?: How often do you talk on the phone with friends or family?: once per week How often do you get together with friends or relatives?: three or more times per week How often do you attend nondenominational or buddhism services?: 4 or more times per year Do you belong to any clubs or organized social groups?: no Panel score (0-1 are the most socially isolated patients): 2 What type of physical activity do you participate in: walking Duration: 15-30 minutes/day Frequency: daily Wendy/Rastafari: Jain Special wendy needs: No Seatbelt use: always Helmet use: Yes Helmet use: always Drive intox or ride w/intox driver's license reviewing officer: No Do you feel safe at home: Yes Do you feel safe in your relationship?: Yes Female Reproductive History Menstrual Menopause type: natural History History 4 Para 4 Hx # Term Pregnancies Multiple births Hx # Pregnancies Ectopic pregnancies AB induced Hx Number of Living Children 3 AB spontaneous Meds Allergies and Home Medications Allergies Allergy/AdvReac Type Severity Reaction Status Date / Time Sulfa (Sulfonamide Allergy Unverified 12/31/22 15:32 Antibiotics) PCNepinephrine mold, ragweed Allergy Skin Rash Uncoded 12/31/22 15:32 Home Medications Medication Instructions Recorded Confirmed Type Unknown [No Known Home Meds] 12/31/22 12/31/22 History Exam Narrative Exam Narrative: General: Patient appears older than stated age, lying in bed with her severe rheumatoid arthritis deformities of her upper extremities especially the hands with little movement in bed. Her eyes are open and she is awake and alert at least to person and place. She did not appear to be in acute distress. HEENT: Normocephalic, eyes with pupils equal react light symmetrically, extraocular movement intact and sclera anicteric. Oropharynx with dry mucosa very poor dentition with missing and carious teeth. Neck: Supple without JVD. Back: Kyphotic without CVA tenderness palpation proximal exam of not sitting up in bed. Daughter did does not report any bedsores though she does not always get to examine patient who refuses bathing and self-care. Lungs: Bronchovesicular breath sounds diffusely with fair aeration but poor inspiratory effort. No focalizing rales or rhonchi. No expiratory wheeze or in creased expiratory phase. Breast: Exam deferred. Heart: Distant heart sounds with regular rate and rhythm and no appreciable murmur or gallop. Abdomen: Scaphoid contour, soft without focal guarding or rebound. Patient is uncomfortable to deep palpation over most of her abdomen but no palpable hepat osplenomegaly. (CT scan of the abdomen did reveal staghorn calculi in the renal collecting system and gallstones). Bowel sounds present in all quadrants but hypoactive. Genitalia/rectal: Exam deferred. Extremities: Severe rheumatoid arthritic changes of the IP joint and MCP joints of the hands especially and less so over the feet. Fair capillary refill. No clubbing, cyanosis or pitting edema with patient's legs revealing moderate nonpitting edema with long hair over her legs. Skin: Pale, warm and dry with no lesions noted but patient was not fully examined want to set up in bed. Neuro: Current nerves II through XII intact, no focal motor deficits. No tremor. Psych: Depressed mood and flattened affect. No abnormal thought processes. Remote and recent memory appear to be grossly intact though daughter describes some episodes of decreased short-term memory recently. Results Imaging Imaging Studies: Exam: CT Abdomen And Pelvis Without Contrast Exam date and time: 12/31/2022 6:38 PM Age: 67 years old Clinical indication: Patient HX: Ms change, weight loss TECHNIQUE: Imaging protocol: Computed tomography of the abdomen and pelvis without contrast. COMPARISON: CT ABDOMEN PELVIS W 07/28/2018 10:13 AM FINDINGS: Lungs: Lung bases are clear. Pleural spaces: No pleural effusion. Heart: Normal heart size. No pericardial effusion. No coronary artery atherosclerotic calcium is visible. Liver: The liver is normal in size, contour and attenuation. Gallbladder and bile ducts: Multiple gallstones are noted within the gallbladder. Multiple calcifications are noted in the region of the garett hepatis. Significance uncertain. There is some motion artifact degradation of image quality. These might represent calcified mesenteric lymph nodes. These are suggested 07/28/2018, but appear larger on current evaluation. Recommend clinical correlation. Pancreas: Normal. No ductal dilation. Spleen: The spleen is normal in size, contour and attenuation. Adrenal glands: Bilateral adrenal nodularity. This is a new finding in comparison with previous evaluation. Significance uncertain. More prominent on the left. Largest adrenal nodule is the medial limb of the left adrenal gland measuring 11 x 16 mm. This is nonspecific in appearance. Can not exclude a metastatic process. Interval development of adrenal adenomas can not be excluded. Right adrenal gland with thickening of the limbs. No rita nodular type fullness. Kidneys and ureters: Extensive left-sided renal calculus disease. Staghorn calculi within the renal pelvis. Multiple calices with calculi. Right kidney with calcifying renal pyramids which could represent a process such as medullary sponge kidney or nephrocalcinosis. No acute obstructive uropathy. No acute renal inflammation. Stomach and bowel: No acute gastric changes. There is a large sliding hiatal hernia. No acute features. Appendix: A non inflamed appendix is identified. See series 3: Images 38 through 33. Intraperitoneal space: No free fluid. No free air. Vasculature: Aortoiliac atherosclerotic calcium. Distal abdominal aortic aneurysmal dilatation at 2.5 x 2.5 cm. No acute features of aneurysmal change. Study is limited without contrast. Lymph nodes: Calcified lymph nodes in the garett hepatis region. No retroperitoneal lymphadenopathy. Urinary bladder: Urinary bladder is unremarkable in appearance. No wall thickening. No intravesicular calculi. No intravesicular gas. Reproductive: The uterus and adnexa are unremarkable in appearance. There are no dominant adnexal cysts or masslike features. There are no inflammatory features. No uterine mass evident. Bones/joints: Degenerative lumbar spine. Degenerative L5 anterolisthesis on S1 6 mm. Soft tissues: Abdominal wall soft tissues are unremarkable. There is distention of the left hip bursa overlying the greater trochanter. There is calcium within the bursal space. This is consistent with a left hip calcific bursitis. This is a new finding since 2019. There is also calcium within the proximal left sartorius muscle at the musculotendinous junction. IMPRESSION: 1. ? Large hiatal hernia. No acute features. 2. ? Adrenal nodularity more prominent on left than right. This is new since 2019. Significance uncertain. Can not exclude metastatic change to the adrenal glands. Recommend clinical correlation with any known malignancy. 3. ? Left renal staghorn calculi. No acute renal inflammation. Right kidney with calcifications of the renal pyramids which could represent a medullary sponge kidney or nephrocalcinosis process. 4. ? Atherosclerotic abdominal aorta and mesenteric vessels. Distal abdominal aorta aneurysmal dilatation at 2.5 cm. 5. ? Degenerative lumbar spine changes. 6. ? Left hip trochanteric calcified bursitis. 7. ? Proximal left sartorius muscle musculotendinous calcification suggesting chronic inflammation. 8. ? Gallstone disease. 9. ? Calcifications in the garett hepatis suggesting lymph nodes. Slightly progressive in their size and degree of calcification since 2018. Exam: XR Chest Exam date and time: 12/31/2022 6:34 PM Age: 67 years old Clinical indication: Patient HX: Ms change, weight loss TECHNIQUE: Imaging protocol: Radiologic exam of the chest. Views: 2 views. COMPARISON: CT ABDOMEN PELVIS W 07/28/2018 10:13 AM FINDINGS: Lungs: Severe hyperinflation consistent underlying emphysema or COPD. No acute infiltrates. Linear opacifications left lower lung field consistent with scar versus atelectasis. Pleural spaces: No pleural effusion. Heart/Mediastinum: Normal heart size. Bones/joints: Old healed right rib fractures. Degenerative thoracic spine. Old midthoracic level compression fractures.. IMPRESSION: 1. ? Emphysema/COPD. 2. ? Linear opacification left lower lung field suggesting lingular atelectasis versus scar 3. ? No pleural effusions. No infiltrates or edema. Labs 12/31/22 17:22 12/31/22 17:22 Labs: Laboratory Results - last 24 hr 12/31/22 12/31/22 12/31/22 17:21 17:22 17:22 WBC 15.06 H RBC 4.34 Hgb 13.0 Hct 38.0 MCV 88 MCH 30.0 MCHC 34.2 RDW 13.8 Plt Count 469 H MPV 8.0 Immature Gran % 2.1 Neutrophils % 72.2 Lymphocytes % 17.0 Monocytes % 6.9 Eosinophils % 1.1 Basophils % 0.7 Nucleated RBC % 0.0 Absolute Neutrophils 10.87 H Absolute Lymphocytes 2.56 Absolute Monocytes 1.04 H Absolute Eosinophils 0.17 Absolute Basophils 0.11 VBG pH VBG pCO2 VBG pO2 VBG HCO3 VBG Total CO2 VBG O2 Saturation VBG Base Excess Sodium 128 L Potassium 4.5 Chloride 93 L Carbon Dioxide 22.5 Anion Gap 12.5 H BUN 38 H Creatinine 2.5 H Est GFR (CKD-EPI 2020) 20.31 Glucose 98 Calcium 12.7 H* Magnesium 1.8 Total Bilirubin 0.3 AST 18 ALT 15 Alkaline Phosphatase 137 H Ammonia 34 H Troponin I 943 H* Total Protein 7.9 Albumin 3.2 L Urine Color Urine Clarity Urine pH Ur Specific [place] Urine Protein Urine Ketones Urine Blood Urine Nitrite Urine Bilirubin Urine Urobilinogen Ur Leukocyte Esterase Urine RBC Urine WBC Ur Epithelial Cells Urine Crystals Urine Bacteria Urine Casts Urine Mucus Ur Culture Indicated? Urine Glucose 12/31/22 12/31/22 12/31/22 17:22 18:13 20:23 WBC RBC Hgb Hct MCV MCH MCHC RDW Plt Count MPV Immature Gran % Neutrophils % Lymphocytes % Monocytes % Eosinophils % Basophils % Nucleated RBC % Absolute Neutrophils Absolute Lymphocytes Absolute Monocytes Absolute Eosinophils Absolute Basophils VBG pH 7.39 VBG pCO2 36 L VBG pO2 50 VBG HCO3 22 L VBG Total CO2 20 L VBG O2 Saturation 85 VBG Base Excess -3 L Sodium Potassium Chloride Carbon Dioxide Anion Gap BUN Creatinine Est GFR (CKD-EPI 2020) Glucose Calcium Magnesium Total Bilirubin AST ALT Alkaline Phosphatase Ammonia Troponin I 959 H* Total Protein Albumin Urine Color Yellow Urine Clarity Sl Cloudy Urine pH 6.0 Ur Specific [place] 1.015 Urine Protein 30 H Urine Ketones Negative Urine Blood Trace-intact H Urine Nitrite Negative Urine Bilirubin Negative Urine Urobilinogen 0.2 Ur Leukocyte Esterase Moderate H Urine RBC 0-2 Urine WBC 20-50 H Ur Epithelial Cells Many Urine Crystals Negative Urine Bacteria Many Urine Casts Negative Urine Mucus Trace Ur Culture Indicated? No/Sq. Contamination Urine Glucose Negative Last Vital Signs Temp 37.0 C 12/31/22 15:26 Pulse 79 12/31/22 21:18 Resp 18 12/31/22 19:06 BP 135/71 12/31/22 21:18 Pulse Ox 99 12/31/22 21:18 Time Spent Time spent with Patient: >75 minutes Time was spent: preparing to see the patient(eg.review tests), obtaining and/or reviewing separately otained hiistory, ordering medications,tests, procedures, referring, communicating with other health resident care technician, indepentently interpreting results, counseling the patient and care coordination
--- NOTE | 2023-01-01 | DI.US_ITS ---
Exam(s) US ABDOMEN LIMITED EXAM: US ABDOMEN LIMITED CLINICAL HISTORY: garett hepatis lymphadenopathy TECHNIQUE: Ultrasound abdomen performed using standard protocol. COMPARISON: CT CT ABDOMEN PELVIS WO from 12/31/2022 FINDINGS: PANCREAS: Cannot be visualized due to overlying bowel gas. LIVER: Normal. Hepatopedal flow in the Portal Vein. The liver measures in 12.2 cm length. GALLBLADDER:The gallbladder is contracted. Gallstones are present. No evidence of wall thickening. No pericholecystic fluid identified. BILIARY SYSTEM: Common bile duct measures < 7 mm. No intrahepatic biliary ductal dilation. MURRAY'S SIGN: Negative. RIGHT KIDNEY: Kidney is normal in size. No evidence of renal calculi. No evidence of hydronephrosis. There is a simple 0.8 cm cyst in the right kidney. No follow-up is recommended. The medullary pyra mids are mildly echogenic consistent with the multiple calcifications seen on the CT scan suggesting medullary nephrocalcinosis. ASCITES: None seen. IMPRESSION: 1. The garett hepatis cannot be adequately evaluated due to overlying bowel gas. The calcified lymph nodes are best appreciated on the CT scan from 12/31/2022. 2. Contracted gallbladder. Cholelithiasis. No biliary ductal dilatation. DATA REPOSITORY:
[2023-01-01 00:24] LABS: TSH (W/Ref FT4) 0.68 uIU/mL (0.36-3.74)
[2023-01-01 00:32] VITALS: BP 128/71; PULSE 77; RESP 18; TEMP 36.6; O2SAT 92
[2023-01-01 00:38] LABS: Troponin I 849 ng/L (<or=60)
[2023-01-01 07:00] VITALS: PULSE 79
--- NOTE | 2023-01-01 07:30 | RT.EKG_ITS ---
APPROVED REPORT Exam: Resting ECG Reason for Exam: elevated troponin Patient Location: I HR:78 bpm ECG Measurements Heart Rate 78 AXIS AZ 147 P 93 QRSd 83 QRS 89 QT 365 T 57 QTc 416 Conclusion Sinus rhythm...normal P axis, V-rate 50- 99 Right atrial abnormality Late transition Borderline right axis deviation...QRS axis ( 81, 90)
[2023-01-01 07:41] LABS: HCT 31.3 % (36.0-46.0); HGB 10.6 g/dL (11.2-15.7); MCH 30.8 pg (27.0-33.0); MCHC 33.9 % (32.0-36.0); MCV 91 fL (80-95); MPV 7.9 fL (8.0-11.0); Platelet Count 380 10^3/uL (130-400); RBC 3.44 10^6/uL (3.93-5.22); RDW 14.2 % (11.7-14.6); RDW-SD 46.8 fL; WBC 12.21 10^3/uL (4.4-10.8)
[2023-01-01 07:52] LABS: Calculated LDL 97 mg/dL (<100); Cholesterol 169 mg/dL (<200); HDL Cholesterol 43 mg/dL (40-60); Triglyceride 149 mg/dL (<150)
[2023-01-01 07:55] LABS: Troponin I 716 ng/L (<or=60)
[2023-01-01 08:01] LABS: ALT 14 U/L (14-59); AST 17 U/L (15-37); Albumin 2.3 g/dL (3.4-5.0); Alkaline Phosphatase 102 U/L (46-116); Anion Gap 12.7 mmol/L (3-11); BUN 39 mg/dL (7-18); Bilirubin, Total 0.1 mg/dL (0.2-1.0); CO2 19.3 mmol/L (21.0-32.0); CREATININE 2.3 mg/dL (0.55-1.02); Calcium 10.6 mg/dL (8.5-10.1); Chloride 99 mmol/L (98-107); Estimated GFR 22.45 (mL/min/1.73m2); Glucose 150 mg/dL (74-106); Magnesium 1.5 mg/dL (1.8-2.4); Potassium 3.3 mmol/L (3.5-5.1); Sodium 131 mmol/L (136-145); Total Protein 5.9 g/dL (6.4-8.2)
--- NOTE | 2023-01-01 08:11 | CCONE_ITS ---
Date of service: 01/01/23 Time of Service: 08:11 History of Present Illness Narrative: This consultation is performed based on information obtained from the medical record. Patient was not interviewed or examined This is reportedly a chronically ill and debilitated woman with multiple medical problems who presented to the hospital yesterday. She was found to have an elevated troponin without any symptoms concerning for cardiac etiology, no EKG changes. Based on review of her medical record she is NOT a candidate for any type of aggressive or invasive cardiac testing I would recommend supportive care, obtain an echocardiogram, review goals of care with the patient and family. 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 Last saw [facility] [place] Rheumatology in 2004 Nodular scleritis of left eye (Chronic) Hyperlipidemia (Chronic) IBS (irritable bowel syndrome) (Chronic) Staghorn renal calculus (Acute ~07/2018) Cigarette smoker (Chronic) Medical History (Updated 12/31/22 @ 23:38 by Yaniv Chavez) Hematuria (~07/2018) Lyme disease Family History Mother , at 70 Liver cancer Hypertension Substance abuse Psoriatic arthritis Father , at 76 Alcohol abuse Heart disease Pulmonary fibrosis Rheumatoid arthritis Hypertension Sister Alcohol abuse Hyperlipidemia Sister Depression Brother Alcohol abuse Throat cancer Heart disease Myocardial infarction Son , at 36, fell of bridge while intoxicated No problems noted. Son Renal calculi Hypertension Son No problems noted. Daughter Anxiety Maternal Grandfather , at 64 Mesothelioma Maternal Grandmother , at 50 Alcohol abuse Heart disease Paternal Grandfather , at 78 No problems noted. Paternal Grandmother , at 67 of [place] Heart disease Myocardial infarction Social History Smoking/Tobacco Use Status: Current-Occasional Tobacco Type: cigarettes Quit status: considering quitting Smoking risk assessment performed?: Yes Alcohol Intake: never Drug use: Never Substance use type: does not use Caregiver/Support person: No Household members: children Housing: house Communication Needs: None Do you need help understanding health information?: Never Pets and animals: No Sexually active: No Do you think of yourself as: straight/heterosexual Current gender identity: female What is your relationship status?: How often do you talk on the phone with friends or family?: once per week How often do you get together with friends or relatives?: three or more times per week How often do you attend pentecostal or scientology services?: 4 or more times per year Do you belong to any clubs or organized social groups?: no Panel score (0-1 are the most socially isolated patients): 2 What type of physical activity do you participate in: walking Duration: 15-30 minutes/day Frequency: daily Wendy/Sabianist: Moravian Special wendy needs: No Seatbelt use: always Helmet use: Yes Helmet use: always Drive intox or ride w/intox local company flatbed truck driver: No Do you feel safe at home: Yes Do you feel safe in your relationship?: Yes Female Reproductive History Menstrual Menopause type: natural History History 4 Para 4 Hx # Term Pregnancies Multiple births Hx # Pregnancies Ectopic pregnancies AB induced Hx Number of Living Children 3 AB spontaneous Results Last Vital Signs Temp 36.6 C 01/01/23 00:32 Pulse 79 01/01/23 07:00 Resp 18 01/01/23 00:32 BP 128/71 01/01/23 00:32 Pulse Ox 92 01/01/23 00:32 Labs 01/01/23 07:25 01/01/23 07:25 Labs: Laboratory Results - last 24 hr 12/31/22 12/31/22 12/31/22 17:21 17:22 17:22 WBC 15.06 H RBC 4.34 Hgb 13.0 Hct 38.0 MCV 88 MCH 30.0 MCHC 34.2 RDW 13.8 Plt Count 469 H MPV 8.0 Immature Gran % 2.1 Neutrophils % 72.2 Lymphocytes % 17.0 Monocytes % 6.9 Eosinophils % 1.1 Basophils % 0.7 Nucleated RBC % 0.0 Absolute Neutrophils 10.87 H Absolute Lymphocytes 2.56 Absolute Monocytes 1.04 H Absolute Eosinophils 0.17 Absolute Basophils 0.11 VBG pH VBG pCO2 VBG pO2 VBG HCO3 VBG Total CO2 VBG O2 Saturation VBG Base Excess Sodium 128 L Potassium 4.5 Chloride 93 L Carbon Dioxide 22.5 Anion Gap 12.5 H BUN 38 H Creatinine 2.5 H Est GFR (CKD-EPI 2020) 20.31 Glucose 98 Calcium 12.7 H* Magnesium 1.8 Total Bilirubin 0.3 AST 18 ALT 15 Alkaline Phosphatase 137 H Ammonia 34 H Troponin I 943 H* Total Protein 7.9 Albumin 3.2 L Triglycerides Total Cholesterol LDL Cholesterol, Calc HDL Cholesterol TSH Urine Color Urine Clarity Urine pH Ur Specific [place] Urine Protein Urine Ketones Urine Blood Urine Nitrite Urine Bilirubin Urine Urobilinogen Ur Leukocyte Esterase Urine RBC Urine WBC Ur Epithelial Cells Urine Crystals Urine Bacteria Urine Casts Urine Mucus Ur Culture Indicated? Urine Glucose 12/31/22 12/31/22 12/31/22 17:22 18:13 20:23 WBC RBC Hgb Hct MCV MCH MCHC RDW Plt Count MPV Immature Gran % Neutrophils % Lymphocytes % Monocytes % Eosinophils % Basophils % Nucleated RBC % Absolute Neutrophils Absolute Lymphocytes Absolute Monocytes Absolute Eosinophils Absolute Basophils VBG pH 7.39 VBG pCO2 36 L VBG pO2 50 VBG HCO3 22 L VBG Total CO2 20 L VBG O2 Saturation 85 VBG Base Excess -3 L Sodium Potassium Chloride Carbon Dioxide Anion Gap BUN Creatinine Est GFR (CKD-EPI 2020) Glucose Calcium Magnesium Total Bilirubin AST ALT Alkaline Phosphatase Ammonia Troponin I 959 H* Total Protein Albumin Triglycerides Total Cholesterol LDL Cholesterol, Calc HDL Cholesterol TSH Urine Color Yellow Urine Clarity Sl Cloudy Urine pH 6.0 Ur Specific [place] 1.015 Urine Protein 30 H Urine Ketones Negative Urine Blood Trace-intact H Urine Nitrite Negative Urine Bilirubin Negative Urine Urobilinogen 0.2 Ur Leukocyte Esterase Moderate H Urine RBC 0-2 Urine WBC 20-50 H Ur Epithelial Cells Many Urine Crystals Negative Urine Bacteria Many Urine Casts Negative Urine Mucus Trace Ur Culture Indicated? No/Sq. Contamination Urine Glucose Negative 12/31/22 01/01/23 01/01/23 23:54 07:25 07:25 WBC RBC Hgb Hct MCV MCH MCHC RDW Plt Count MPV Immature Gran % Neutrophils % Lymphocytes % Monocytes % Eosinophils % Basophils % Nucleated RBC % Absolute Neutrophils Absolute Lymphocytes Absolute Monocytes Absolute Eosinophils Absolute Basophils VBG pH VBG pCO2 VBG pO2 VBG HCO3 VBG Total CO2 VBG O2 Saturation VBG Base Excess Sodium Potassium Chloride Carbon Dioxide Anion Gap BUN Creatinine Est GFR (CKD-EPI 2020) Glucose Calcium Magnesium Total Bilirubin AST ALT Alkaline Phosphatase Ammonia Troponin I 849 H* 716 H* Total Protein Albumin Triglycerides 149 Total Cholesterol 169 LDL Cholesterol, Calc 97 HDL Cholesterol 43 TSH 0.68 Urine Color Urine Clarity Urine pH Ur Specific [place] Urine Protein Urine Ketones Urine Blood Urine Nitrite Urine Bilirubin Urine Urobilinogen Ur Leukocyte Esterase Urine RBC Urine WBC Ur Epithelial Cells Urine Crystals Urine Bacteria Urine Casts Urine Mucus Ur Culture Indicated? Urine Glucose 01/01/23 01/01/23 07:25 07:25 WBC 12.21 H RBC 3.44 L Hgb 10.6 L D Hct 31.3 L MCV 91 MCH 30.8 MCHC 33.9 RDW 14.2 Plt Count 380 MPV 7.9 L Immature Gran % Neutrophils % Lymphocytes % Monocytes % Eosinophils % Basophils % Nucleated RBC % Absolute Neutrophils Absolute Lymphocytes Absolute Monocytes Absolute Eosinophils Absolute Basophils VBG pH VBG pCO2 VBG pO2 VBG HCO3 VBG Total CO2 VBG O2 Saturation VBG Base Excess Sodium 131 L Potassium 3.3 L D Chloride 99 Carbon Dioxide 19.3 L Anion Gap 12.7 H BUN 39 H Creatinine 2.3 H Est GFR (CKD-EPI 2020) 22.45 Glucose 150 H Calcium 10.6 H Magnesium 1.5 L Total Bilirubin 0.1 L AST 17 ALT 14 Alkaline Phosphatase 102 Ammonia Troponin I Total Protein 5.9 L Albumin 2.3 L Triglycerides Total Cholesterol LDL Cholesterol, Calc HDL Cholesterol TSH Urine Color Urine Clarity Urine pH Ur Specific [place] Urine Protein Urine Ketones Urine Blood Urine Nitrite Urine Bilirubin Urine Urobilinogen Ur Leukocyte Esterase Urine RBC Urine WBC Ur Epithelial Cells Urine Crystals Urine Bacteria Urine Casts Urine Mucus Ur Culture Indicated? Urine Glucose
[2023-01-01 08:20] LABS: Lab Add On Test DONE
[2023-01-01 08:32] LABS: C-Reactive Protein 3.07 mg/dL (0.0-0.3)
[2023-01-01 08:50] LABS: Procalcitonin 0.1 ng/mL
--- NOTE | 2023-01-01 09:17 | INITIAL_ITS ---
Date of service: 01/01/23 Time of Service: 09:18 Care Management Initial Assmt Initial Assessment REASON FOR HOSPITALIZATION:: Dehydration, UTI, Failure to Thrive PREVIOUS FUNCTIONAL STATUS/SOCIAL/FAMILY SUPPORTS:: Bren lives in [place] with her daughter, Vicky. Her about 7 years ago, and she continues to grieve this loss. She has two living sons (one has passed); who live nearby. Per Vicky, Bren has been declining over the last three years, which has worsened in the last three months. Bren has not been ambulating much recently, and has been refusing self care or help from her family, who are her caregivers. CURRENT FUNCTIONAL STATUS:: Bren was sleeping, and her daughter, Vicky, was by her side when CM met with them. Vicky discussed her mother's health over the years, specifically noting that every time she has been sick, sometimes to a point where she is currently, she has always bounced back to health. She reported that over the past year her mother has been more distant; she feels she may be depressed. She stated that her mom and dad would have celebrated their fiftieth wedding anniversary this year; he about seven years ago. Vicky feels strongly that her mother would want treatment to get better, and feels that she is not in her right mind, which is why she is saying no to things. She reported that her mother has had a lot of testing done today, so she is very tired. CM did not wake her, but did have a nice conversation with Vicky, who lives with her mom, helps care for her, and knows her very well. Palliative care will meet with Bren and Vicky later today, although Vicky is not sure that she is interested in palliative care being involved; she is agreeable to the visit. CM will continue to follow. ADVANCE DIRECTIVES:: Not on file; Palliative consulted. Has patient been provided with info about the portal/API?: Yes Did the patient sign up for the portal?: No CODE STATUS:: Full Code INSURANCE COVERAGE / FINANCIAL ISSUES:: MCR CURRENT HOME/COMMUNITY SERVICES/EQUIPMENT:: Bren's daughter currently cares for her at home. PRIMARY CARE PHYSICIAN:: Sangeeta Appiah POTENTIAL DISCHARGE NEEDS:: Evaluations for further needs, follow up appointments. PATIENT/FAMILY EDUCATION NEEDS:: Review discharge instructions and limitations, discussion of self care needs including ask me three. ANTICIPATED BARRIERS TO DISCHARGE:: None identified. TRANSPORTATION:: Via private vehicle by family. PLAN:: Anticipate Bren will return home once medically cleared with new orders for services. Her daughter, Vicky, will continue to care for her at home. Palliative care is meeting with Bren and Vicky to discuss goals of care. She will follow up with her PCP and discharge plan of care. CM will continue to follow. 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 Last saw [facility] Rheumatology in 2004 Nodular scleritis of left eye (Chronic) Hyperlipidemia (Chronic) IBS (irritable bowel syndrome) (Chronic) Staghorn renal calculus (Acute ~07/2018) Cigarette smoker (Chronic) Medical History (Updated 12/31/22 @ 23:38 by Yaniv Chavez) Hematuria (~07/2018) Lyme disease Family History Mother , at 70 Liver cancer Hypertension Substance abuse Psoriatic arthritis Father , at 76 Alcohol abuse Heart disease Pulmonary fibrosis Rheumatoid arthritis Hypertension Sister Alcohol abuse Hyperlipidemia Sister Depression Brother Alcohol abuse Throat cancer Heart disease Myocardial infarction Son , at 36, fell of bridge while intoxicated No problems noted. Son Renal calculi Hypertension Son No problems noted. Daughter Anxiety Maternal Grandfather , at 64 Mesothelioma Maternal Grandmother , at 50 Alcohol abuse Heart disease Paternal Grandfather , at 78 No problems noted. Paternal Grandmother , at 67 of [place] Heart disease Myocardial infarction Social History Smoking/Tobacco Use Status: Current-Occasional Tobacco Type: cigarettes Quit status: considering quitting Smoking risk assessment performed?: Yes Alcohol Intake: never Drug use: Never Substance use type: does not use Caregiver/Support person: No Household members: children Housing: house Communication Needs: None Do you need help understanding health information?: Never Pets and animals: No Sexually active: No Do you think of yourself as: straight/heterosexual Current gender identity: female What is your relationship status?: How often do you talk on the phone with friends or family?: once per week How often do you get together with friends or relatives?: three or more times per week How often do you attend tenriism or congregational services?: 4 or more times per year Do you belong to any clubs or organized social groups?: no Panel score (0-1 are the most socially isolated patients): 2 What type of physical activity do you participate in: walking Duration: 15-30 minutes/day Frequency: daily Wendy/Oriental Orthodox: Rastafarian Special wendy needs: No Seatbelt use: always Helmet use: Yes Helmet use: always Drive intox or ride w/intox driver examiner: No Do you feel safe at home: Yes Do you feel safe in your relationship?: Yes Female Reproductive History Menstrual Menopause type: natural History History 4 Para 4 Hx # Term Pregnancies Multiple births Hx # Pregnancies Ectopic pregnancies AB induced Hx Number of Living Children 3 AB spontaneous
[2023-01-01 10:22] VITALS: BP 98/61; PULSE 74; RESP 18; TEMP 37.3; O2SAT 97
--- NOTE | 2023-01-01 11:20 | DI.CT_ITS ---
Exam(s) CT HEAD WO EXAM: CT HEAD WO CLINICAL HISTORY: worsening cognitive status. TECHNIQUE: Imaging Protocol: Axial computed tomography images with coronal and sagittal reformatted images were created and reviewed COMPARISON: No exams were available for comparison FINDINGS: Exam limited by significant motion artifact. Ventricles and Extra axial spaces: Ventricles appear somewhat dilated for the patient's age. Hemorrhage: No hemorrhage visible in the portions of the brain which do not show motion. Cannot excl ude hemorrhage elsewhere. Cerebral parenchyma: Extremely limited evaluation. Majority of the parenchyma is obscured by motion artifact. Of probable white matter changes of small vessel disease. Midline shift: None. Brainstem/Cerebellum: Normal. Calvarium: Normal where visualized.. Visualized Paranasal sinuses/Mastoids: Clear. Soft Tissues: Unremarkable. IMPRESSION: Exam severely limited by motion. No acute abnormality seen on portions of the brain without motion. RADIATION DOSE DELIVERED: 630.53mGy.cm Total DLP DATA REPOSITORY: All CT scans at this facility are submitted to the National Radiology Data Registry (NRDR) Dose Index Registry (DIR) with the [employer] (ACR). RADIATION OPTIMIZATION: All CT scans at this facility use at least one of these dose optimization te chniques: automated exposure control; mA and/or kV adjustment per patient size (includes targeted exa ms where dose is matched to clinical indication); or iterative reconstruction.
--- NOTE | 2023-01-01 11:25 | PT.INIE ---
PT Notes Visit Reasons: Dehydration, UTI, Failure to Thrive Physical Therapy Inpatient Initial Evaluation Date: 01/01/2023 Referring Doctor: Lorrie Huff MD PT Orders: PT CONSULT: Limited ability Precautions: Fall. Standard. Activity as tolerated. Patient Profile/Admitting Diagnosis: Patient is a 67-year-old female patient admitted for management of dehydration, UTI, hypercalcemia, elevated troponin, and failure to thrive. 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 Last saw [facility] in 2004 Nodular scleritis of left eye (Chronic) Hyperlipidemia (Chronic) IBS (irritable bowel syndrome) (Chronic) Staghorn renal calculus (Acute ~07/2018) Cigarette smoker (Chronic) Medical History?(Updated 12/31/22 @ 23:38 by Yaniv Chavez) Hematuria (~07/2018) Lyme disease Social History/Home Situation: Patient lives in a private home with 5 steps to enter. Daughter is 24/7 caregiver. Due to progressive degeneration of multiple joints, patient is now only able to perform transfer and has spent most of her time in bed. Bed height at home is tall. Patient has used a rolling office chair to get from bed to bathroom and had been able to transfer with daughter each time. Equipment Owned/DME: Walking sticks Subjective: I need a cigarette! Patient had asked daughter for a cigarette and an lisandra tray about 3-4x while PT was attempting an evaluation. She also tried to pull her IV out. Nurse Mayfield was asked to examine if IV site was still okay. Nurses Latonya and Lena were informed asked about whether patient can have a nicotine patch before her ultrasound testing as her daughter emphasized that it relaxes her. Objective: General Observation: Supine in bed. IV through L UE. Ulnar drift in B wrists/fingers. Genu valga in B knees. Toe deformity seen in B sides due to arthritis. Mental Status: Alert and oriented as to person, place, time, and purpose. Pain: Generalized moderate arthritic pain Vital Signs: Nurse Hanks monitoring ROM: Right Upper Extremity: Shoulder Flexion WFL. Shoulder abduction WFL. Elbow flexion WFL. Wrist flexion 10 degrees to 20 degrees. Wrist extension to neutral only. Functional opening and closing of hand limited. Left Upper Extremity: Shoulder Flexion WFL. Shoulder abduction WFL. Elbow flexion WFL. Wrist flexion 10 degrees to 20 degrees. Wrist extension to neutral only. Functional opening and closing of hand limited. Right Lower Extremity: Hip flexion about 60 degrees. Hip abduction about 20 degrees. Knee flexion about 40 degrees. Ankle dorsiflexion to neutral only. Ankle plantarflexion about 20 degrees. Left Lower Extremity: Hip flexion about 60 degrees. Hip abduction about 20 degrees. Knee flexion about 40 degrees. Ankle dorsiflexion to neutral only. Ankle plantarflexion about 20 degrees. 4- Strength: Right Upper Extremity: Shoulder flexors 3/5. Shoulder abductors 3/5. Elbow flexors 3/5. Elbow extensors 3/5. Human Relations Professor weak and minimally functional. Left Upper Extremity: Shoulder flexors 3/5. Shoulder abductors 3/5. Elbow flexors 3/5. Elbow extensors 3/5. Human Relations Professor weak and minimally functional. Right Lower Extremity: Hip flexors 3-/5. Hip abductors 3-/5. Knee flexors 3-/5. Knee extensors 3-/5. Ankle dorsiflexors 3-/5. Ankle plantarflexors 3-/5. Left Lower Extremity: Hip flexors 3-/5. Hip abductors 3-/5. Knee flexors 3-/5. Knee extensors 3-/5. Ankle dorsiflexors 3-/5. Ankle plantarflexors 3-/5. Bed Mobility/Transfers: Rolling minimal assist Supine to sit refused Sit to supine refused Sit to stand deferred for today Stand to sit deferred for today Gait: Deferred for today Balance: Static Sitting: Unable to test Dynamic Sitting: Unable to test Static Standing: Unable to test Dynamic Standing: Unable to test Special Tests: Mobility Limitations Standardized Measure [facility] AM-PAC 6 clicks Basic Mobility Inpatient Short Form: Raw Score: 7 CMS Score: 92% deficit Informed Consent/Education: Patient was instructed in purpose of PT consult and plan of care. Agreeable to proceed with established PT POC to achieve personal goals. Assessment: For the past 2-3 years patient has been bed-ridden with occasional ability to transfer to and from chair for toileting activities. Patient is mildly confused and is not fully cooperative, intent about getting a cigarette first. Unable to focus to task with manual muscle testing taking quite a while to get done due to decreased level of motivation, confusion, generalized pain, and nicotine hunger. Will plan on assessing safest transfer level in the next session. In the meantime use mechanical lift for all transfers for patient and nursign staff safety. Patient presents with clinical signs and symptoms consistent with current/admitting diagnoses that have resulted to mobility limitations, gait instability, generalized weakness, and overall ADL decline as demonstrated by the following impairment level findings: 1. Decreased strength to B UE/LE major muscle groups 2. Impaired sitting/standing balance 3. Impaired activity tolerance 4. Limitation of joint range of motion in B wirst/finger abd B LE joints as above 5. Confusion 6. Impaired muscle performance Impairments are contributing to the following functional limitations: 1. Decline in bed mobility skills 2. Decline in transfer skills 3. Inability to ambulate without assistive device and physical assistance 4. Increased completion time for mobility ADL performance 5. Increased risk for falls 6. Difficulty with managing steps alone safely Patient is assessed as a 66155 moderate complexity based on the following: History: 67-year-old female with past medical history as indicated above Examination: Demonstrable impairment in strength, balance, and mobility level with underlying impairments and functional limitations as exhibited above as well as deficit score of 100% utilizing the [facility] Mobility Inpatient Short Form Presentation: Evolving Decision Makin moderate complexity Goals: Goals X1 week 1. Supine-Sit independent 2. Sit-Supine independent 3. Sit-Stand independent 4. Stand-Sit contact guard assist with FWW 5. Bed-Chair contact guard assist with FWW 6. Chair-Bed contact guard assist with FWW 7. Minimal assist with gait on level surface with use of FWW for at least 15 steps without report of pain nor dyspnea 8. Minimal assist with stair negotiation while holding onto B rails for at least 5 steps without report of pain nor dyspnea 9. Fair static and dynamic standing balance/tolerance Plan of Care/Treatment Plan: 1-2x/day, 7 days/week x 1 week. Plan of care has been reviewed with the [employer] DRIVER providing the service under Physical Therapy direction. This weekend: Please start patient with bed level exercises and edge of bed sitting after making sure she is premedicated. Initiate Physical Therapy intervention for pain management as needed, strengthening, bed mobility, transfers, gait, stairs, balance training, and use of assistive device. Pre-medicate for pain. DISCHARGE RECOMMENDATIONS: [] Home with no services [] [] Home with services [specify] [] Home with outpatient PT [] [] SNF for continued rehabilitation [] [] Residential Care [] [] SNF versus LTC based on ability to participate and progress [] [X] HH PT vs SNF based on progress towards goals TREATMENT CODE/TIME: 57045 x 20 minutes (1 unit), 63520 x 10 minutes (1 unit) beginning at 11:25 AM. Thank you for the opportunity to participate in the care of this patient. Sue Vega PT, DPT, CLT [facility] [place], [place]
[2023-01-01 11:46] VITALS: BP 105/61; PULSE 75; RESP 14; TEMP 37.2; O2SAT 97
[2023-01-01] MEDS: THIAMINE 500 MG in Normal Saline 100 ML 200 MG IVPB (11:54)
[2023-01-01] MEDS: Normal Saline 1,000 ML 150 ML IV (11:55)
[2023-01-01] MEDS: POTASSIUM CHLORIDE 20 MEQ/100 ML BAG 40 MEQ IVPB ×2 (12:13→14:16)
--- NOTE | 2023-01-01 12:21 | UCONE_ITS ---
Date of service: 01/01/23 Time of Service: 12:32 Assessment and Plan Assessment and plan (1) Staghorn renal calculus: Status: Acute Assessment and plan: At this point, I do not see any indication that she would benefit from a drainage procedure such as a stent or a nephrostomy tube. I would simply r ecommend antibiotics based on her culture and sensitivity for now. If she does not improve as we would expect, we can revisit the idea of placing a ureteral stent. If she is interested in having her stones treated, given the size of the stones, she would certainly need percutaneous nephrolithotomy. A procedure such as ureteroscopy and laser lithotripsy would require multiple, multiple surgeries where the percutaneous approach would give her the best chance to be stone free with 1 or 2 procedures. As her mental status improves, we may be able to get a better handle as to whether she is willing to consider a surgical procedure. Since staghorn stones can be associated with recurrent infections, there is a potential for recurrent admissions to the hospital if the stones are not addressed. History of Present Illness History of Present Illness Chief Complaint: Kidney stones Narrative: This is a 67-year-old woman who was identified as having a staghorn kidney stone on the left back in 2019. At that time, she had gross hematuria which prompted a CT scan. Given the size of the stone, the recommendation was that she be evaluated for a percutaneous nephrolithotomy. Such a procedure is not available at the local critical access hospitals, so a referral was made for her to see the urology providers at [facility]. The patient canceled the appointment. She has not had any concerning episodes of pain or infection or infection until now. She comes in with dehydration and failure to thrive. She There is concern that she may have a urinary tract infection, but the urine that was obtained in the emergency department showed many epithelial cells. Urine c ulture from earlier this month grew E. coli. 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 Last saw [facility] [place] Nodular scleritis of left eye (Chronic) Hyperlipidemia (Chronic) IBS (irritable bowel syndrome) (Chronic) Staghorn renal calculus (Acute ~07/2018) Cigarette smoker (Chronic) Medical History (Updated 12/31/22 @ 23:38 by Yaniv Chavez) Hematuria (~07/2018) Lyme disease Family History Mother , at 70 Liver cancer Hypertension Substance abuse Psoriatic arthritis Father , at 76 Alcohol abuse Heart disease Pulmonary fibrosis Rheumatoid arthritis Hypertension Sister Alcohol abuse Hyperlipidemia Sister Depression Brother Alcohol abuse Throat cancer Heart disease Myocardial infarction Son , at 36, fell of bridge while intoxicated No problems noted. Son Renal calculi Hypertension Son No problems noted. Daughter Anxiety Maternal Grandfather , at 64 Mesothelioma Maternal Grandmother , at 50 Alcohol abuse Heart disease Paternal Grandfather , at 78 No problems noted. Paternal Grandmother , at 67 of [place] Heart disease Myocardial infarction Social History Smoking/Tobacco Use Status: Current-Occasional Tobacco Type: cigarettes Quit status: considering quitting Smoking risk assessment performed?: Yes Alcohol Intake: never Drug use: Never Substance use type: does not use Caregiver/Support person: No Household members: children Housing: house Communication Needs: None Do you need help understanding health information?: Never Pets and animals: No Sexually active: No Do you think of yourself as: straight/heterosexual Current gender identity: female What is your relationship status?: How often do you talk on the phone with friends or family?: once per week How often do you get together with friends or relatives?: three or more times per week How often do you attend episcopalian or caodaism services?: 4 or more times per year Do you belong to any clubs or organized social groups?: no Panel score (0-1 are the most socially isolated patients): 2 What type of physical activity do you participate in: walking Duration: 15-30 minutes/day Frequency: daily Wendy/Cheondoism: Anabaptism Special wendy needs: No Seatbelt use: always Helmet use: Yes Helmet use: always Drive intox or ride w/intox stage driver: No Do you feel safe at home: Yes Do you feel safe in your relationship?: Yes Female Reproductive History Menstrual Menopause type: natural History History 4 Para 4 Hx # Term Pregnancies Multiple births Hx # Pregnancies Ectopic pregnancies AB induced Hx Number of Living Children 3 AB spontaneous Exam Const General: other (Somnolence) GI Palpation: soft and other (No peritoneal signs) Results Last Vital Signs Temp 37.2 C 01/01/23 11:46 Pulse 75 01/01/23 11:46 Resp 14 01/01/23 11:46 BP 105/61 01/01/23 11:46 Pulse Ox 97 01/01/23 11:46 Labs 01/01/23 07:25 01/01/23 07:25 Labs: Laboratory Results - last 24 hr 12/31/22 12/31/22 12/31/22 17:21 17:22 17:22 WBC 15.06 H RBC 4.34 Hgb 13.0 Hct 38.0 MCV 88 MCH 30.0 MCHC 34.2 RDW 13.8 Plt Count 469 H MPV 8.0 Immature Gran % 2.1 Neutrophils % 72.2 Lymphocytes % 17.0 Monocytes % 6.9 Eosinophils % 1.1 Basophils % 0.7 Nucleated RBC % 0.0 Absolute Neutrophils 10.87 H Absolute Lymphocytes 2.56 Absolute Monocytes 1.04 H Absolute Eosinophils 0.17 Absolute Basophils 0.11 VBG pH VBG pCO2 VBG pO2 VBG HCO3 VBG Total CO2 VBG O2 Saturation VBG Base Excess Sodium 128 L Potassium 4.5 Chloride 93 L Carbon Dioxide 22.5 Anion Gap 12.5 H BUN 38 H Creatinine 2.5 H Est GFR (CKD-EPI 2020) 20.31 Glucose 98 Calcium 12.7 H* Magnesium 1.8 Total Bilirubin 0.3 AST 18 ALT 15 Alkaline Phosphatase 137 H Ammonia 34 H Troponin I 943 H* C-Reactive Protein Total Protein 7.9 Albumin 3.2 L Triglycerides Total Cholesterol LDL Cholesterol, Calc HDL Cholesterol Procalcitonin TSH Urine Color Urine Clarity Urine pH Ur Specific [place] Urine Protein Urine Ketones Urine Blood Urine Nitrite Urine Bilirubin Urine Urobilinogen Ur Leukocyte Esterase Urine RBC Urine WBC Ur Epithelial Cells Urine Crystals Urine Bacteria Urine Casts Urine Mucus Ur Culture Indicated? Urine Glucose Add-On Test Request 12/31/22 12/31/22 12/31/22 17:22 18:13 20:23 WBC RBC Hgb Hct MCV MCH MCHC RDW Plt Count MPV Immature Gran % Neutrophils % Lymphocytes % Monocytes % Eosinophils % Basophils % Nucleated RBC % Absolute Neutrophils Absolute Lymphocytes Absolute Monocytes Absolute Eosinophils Absolute Basophils VBG pH 7.39 VBG pCO2 36 L VBG pO2 50 VBG HCO3 22 L VBG Total CO2 20 L VBG O2 Saturation 85 VBG Base Excess -3 L Sodium Potassium Chloride Carbon Dioxide Anion Gap BUN Creatinine Est GFR (CKD-EPI 2020) Glucose Calcium Magnesium Total Bilirubin AST ALT Alkaline Phosphatase Ammonia Troponin I 959 H* C-Reactive Protein Total Protein Albumin Triglycerides Total Cholesterol LDL Cholesterol, Calc HDL Cholesterol Procalcitonin TSH Urine Color Yellow Urine Clarity Sl Cloudy Urine pH 6.0 Ur Specific [place] 1.015 Urine Protein 30 H Urine Ketones Negative Urine Blood Trace-intact H Urine Nitrite Negative Urine Bilirubin Negative Urine Urobilinogen 0.2 Ur Leukocyte Esterase Moderate H Urine RBC 0-2 Urine WBC 20-50 H Ur Epithelial Cells Many Urine Crystals Negative Urine Bacteria Many Urine Casts Negative Urine Mucus Trace Ur Culture Indicated? No/Sq. Contamination Urine Glucose Negative Add-On Test Request 12/31/22 01/01/23 01/01/23 23:54 07:21 07:21 WBC RBC Hgb Hct MCV MCH MCHC RDW Plt Count MPV Immature Gran % Neutrophils % Lymphocytes % Monocytes % Eosinophils % Basophils % Nucleated RBC % Absolute Neutrophils Absolute Lymphocytes Absolute Monocytes Absolute Eosinophils Absolute Basophils VBG pH VBG pCO2 VBG pO2 VBG HCO3 VBG Total CO2 VBG O2 Saturation VBG Base Excess Sodium Potassium Chloride Carbon Dioxide Anion Gap BUN Creatinine Est GFR (CKD-EPI 2020) Glucose Calcium Magnesium Total Bilirubin AST ALT Alkaline Phosphatase Ammonia Troponin I 849 H* C-Reactive Protein 3.07 H Total Protein Albumin Triglycerides Total Cholesterol LDL Cholesterol, Calc HDL Cholesterol Procalcitonin TSH 0.68 Urine Color Urine Clarity Urine pH Ur Specific [place] Urine Protein Urine Ketones Urine Blood Urine Nitrite Urine Bilirubin Urine Urobilinogen Ur Leukocyte Esterase Urine RBC Urine WBC Ur Epithelial Cells Urine Crystals Urine Bacteria Urine Casts Urine Mucus Ur Culture Indicated? Urine Glucose Add-On Test Request DONE 01/01/23 01/01/23 01/01/23 07:21 07:25 07:25 WBC RBC Hgb Hct MCV MCH MCHC RDW Plt Count MPV Immature Gran % Neutrophils % Lymphocytes % Monocytes % Eosinophils % Basophils % Nucleated RBC % Absolute Neutrophils Absolute Lymphocytes Absolute Monocytes Absolute Eosinophils Absolute Basophils VBG pH VBG pCO2 VBG pO2 VBG HCO3 VBG Total CO2 VBG O2 Saturation VBG Base Excess Sodium Potassium Chloride Carbon Dioxide Anion Gap BUN Creatinine Est GFR (CKD-EPI 2020) Glucose Calcium Magnesium Total Bilirubin AST ALT Alkaline Phosphatase Ammonia Troponin I 716 H* C-Reactive Protein Total Protein Albumin Triglycerides 149 Total Cholesterol 169 LDL Cholesterol, Calc 97 HDL Cholesterol 43 Procalcitonin 0.1 TSH Urine Color Urine Clarity Urine pH Ur Specific [place] Urine Protein Urine Ketones Urine Blood Urine Nitrite Urine Bilirubin Urine Urobilinogen Ur Leukocyte Esterase Urine RBC Urine WBC Ur Epithelial Cells Urine Crystals Urine Bacteria Urine Casts Urine Mucus Ur Culture Indicated? Urine Glucose Add-On Test Request 01/01/23 01/01/23 07:25 07:25 WBC 12.21 H RBC 3.44 L Hgb 10.6 L D Hct 31.3 L MCV 91 MCH 30.8 MCHC 33.9 RDW 14.2 Plt Count 380 MPV 7.9 L Immature Gran % Neutrophils % Lymphocytes % Monocytes % Eosinophils % Basophils % Nucleated RBC % Absolute Neutrophils Absolute Lymphocytes Absolute Monocytes Absolute Eosinophils Absolute Basophils VBG pH VBG pCO2 VBG pO2 VBG HCO3 VBG Total CO2 VBG O2 Saturation VBG Base Excess Sodium 131 L Potassium 3.3 L D Chloride 99 Carbon Dioxide 19.3 L Anion Gap 12.7 H BUN 39 H Creatinine 2.3 H Est GFR (CKD-EPI 2020) 22.45 Glucose 150 H Calcium 10.6 H Magnesium 1.5 L Total Bilirubin 0.1 L AST 17 ALT 14 Alkaline Phosphatase 102 Ammonia Troponin I C-Reactive Protein Total Protein 5.9 L Albumin 2.3 L Triglycerides Total Cholesterol LDL Cholesterol, Calc HDL Cholesterol Procalcitonin TSH Urine Color Urine Clarity Urine pH Ur Specific [place] Urine Protein Urine Ketones Urine Blood Urine Nitrite Urine Bilirubin Urine Urobilinogen Ur Leukocyte Esterase Urine RBC Urine WBC Ur Epithelial Cells Urine Crystals Urine Bacteria Urine Casts Urine Mucus Ur Culture Indicated? Urine Glucose Add-On Test Request Imaging Imaging Studies: Her current CT scan lung with her CT scan from 2019 on the PACS system. She has large stone burden in both kidneys with the left side being greater than the right. I do not see any perinephric abscess or hydronephrosis that would be drainable.
--- NOTE | 2023-01-01 14:01 | CHAPLAIN ---
Bren was sleeping when I visited. Spoke with her daughter Vicky who identified herself as Bren's caregiver. Vicky said she's waiting to have more conversation with the hospitalist. Vicky said she believes she knows what her mom would want as far as treatment goes and believes her mom would want tests to find out what's going on. Although her mom reacted negatively to the nurse putting in an IV, Vicky said her mom was reacting to the pain, not the need for an IV. She wants to live, Vicky said. According to Bren's Health Care Coach, Bren has not been eating or drinking recently and may be making statement with that decision. Someone from Palliative Care is coming into visit Bren today. Vicky also called Fr. Anibal Miller. He is the nurse coordinator in [place], and was formerly in [facility] and met Bren then, when her . Vicky said Bren feels close to Fr. Barnett so she called him rather than the Fr. Hoyos in [facility]. I will continue to visit.
--- NOTE | 2023-01-01 15:11 | W.NUTCONSULT ---
Date of service: 01/01/23 Time of Service: 15:11 Nutritional Consult ASSESSMENT: Ms. Rojas presents with failure to thrive. Per her family, she has gone from 130lbs to 80 lbs in the past year if not less time. She has had prolonged poor intake for a few months. H and P notes moderate pitting edema in lower extremities. Her BMI is 16.2 kg/m2 which is c/w severe underweight. Estimated energy needs are 1200 kcal to 1350 kcal/day (30-35 kcal/kg/day) Estimated protein needs are 47g to 57 g/day (1.2 to 1.5 g/kg/day) Estimated fluid needs are 1200 ml/day (30 ml/kg/day) NUTRITIONAL DIAGNOSIS: Severe malnutrition in the context of social circumstances as evidenced by 38% unintentional weight loss in a year or less, prolonged intake of less than 50% of estimated needs, and moderate edema in lower extremities. INTERVENTION: Working with daughter to choose nutrient dense menu. Pt. to try Ensure Clear at dinner tonight. Will offer other high protein high calorie liquid supplementation as well at other meals. MONITORING AND EVALUATION: 1. Will monitor weight, PO intake, and tolerance to supplements. 2. will evaluate nutrition care plan ongoing and adjust as needed. Time Spent in Nutritional Counseling and Treatment: 15 minutes
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
--- NOTE | 2023-01-01 16:17 | PHA.REVIEW2 ---
Pharmacy Admission Review Admission Clinical Review Admission Pharmacy Review: (Updated 12/31/22 @ 23:38 by Yaniv Chavez) Hypercalcemia (Acute) Elevated troponin level not due myocardial infarction (Acute) Dehydration (Acute) Urinary tract infection (Acute) Staghorn renal calculus (Acute ~07/2018) Sulfa (Sulfonamide Antibiotics) Allergy (Unverified 12/31/22 15:32) PCNepinephrine mold, ragweed Allergy (Uncoded 12/31/22 15:32) Skin Rash Resuscitation Status Full Code Height 5 ft 1 in Weight 38.828 kg Comments Comments/Follow Ups: Watch BP, SCr, mag, K+, labs and for med changes (possible renal dose adjustments). Pharmacy Admission Review Renal Dosing Renal Dosing: BUN 39 mg/dL (7-18) H 01/01/23 07:25 Creatinine 2.3 mg/dL (0.55-1.02) H 01/01/23 07:25 Medications needing adjustments: Reviewed (Crcl ~14.15 mL/min current meds okay) Anticoagulation Anticoagulation: Hgb 10.6 g/dL (11.2-15.7) L D 01/01/23 07:25 Hct 31.3 % (36.0-46.0) L 01/01/23 07:25 Plt Count 380 10^3/uL (130-400) 01/01/23 07:25 Creatinine 2.3 mg/dL (0.55-1.02) H 01/01/23 07:25 DVT Prophylaxis: Reviewed Medications: Heparin Therapeutic Anticoagulation: N/A Opiate Usage Evaluate Pain Scale/Pains Meds: N/A Relevant Labs Relevant Labs: Sodium 131 mmol/L (136-145) L 01/01/23 07:25 Potassium 3.3 mmol/L (3.5-5.1) L D 01/01/23 07:25 Chloride 99 mmol/L (98-107) 01/01/23 07:25 Magnesium 1.5 mg/dL (1.8-2.4) L 01/01/23 07:25 C-Reactive Protein 3.07 mg/dL (0.0-0.3) H 01/01/23 07:21 Electrolytes, C-Reactive P, ESR: Reviewed (IV mag and K+ ordered) DM Control DM Control: Reviewed (No DM noted in pt's medical history, previous A1c from 2019) Cardiac Review Cardiac Review: Troponin I 716 ng/L (<or=60) H* 01/01/23 07:25 BP, HR, EF%: Reviewed (BP has been up and down some so far this admission, HR has been mostly within normal limits.) QTc Review QTc: Reviewed (QTc 404 and 416 per EKGs done this admission) IV to PO Switch IV Medications: Reviewed Home Meds Home Med List reviewed: Reviewed (no known home meds) Current Meds Current Medication Order Review: Intervened (changed ceftriaxone from admix to premix) Pharmacy Antibiotic Review Relevant Labs: Relevant Labs 01/01/23 01/01/23 07:21 07:21 C-Reactive Protein 3.07 H Procalcitonin 0.1 Pharmacy Antibiotic Activity: Reviewed, no change Comments: ceftriaxone ordered for UTI per H&P Comments Comments/Follow Ups: Watch BP, SCr, mag, K+, labs and for med changes (possible renal dose adjustments).
--- NOTE | 2023-01-01 17:27 | W.PM.PROGNOT ---
Date of Service Date of service: 01/01/23 Time of Service: 09:00 Assessment and Plan Assessment and plan (1) Urinary tract infection: Start date: 12/31/22 Status: Acute Assessment and plan: Present on admission. Urine C&S from 12/22/22 grew E. Coli and GPC. E. coli was sensitive to ceftriaxone. It does not appear that the urine from last night was cultured. Repeat urine culture. Seen by urology: if interested in treatment, would need a percutaneous nephrolithotomy. (2) NSTEMI (non-ST elevated myocardial infarction): Status: Acute Assessment and plan: Obtain an echo. Monitor on tele. Not a candidate for invasive therapy. Supportive therapy. Asa, statin. Check lipids. (3) Staghorn renal calculus: Status: Acute Assessment and plan: as above (4) SADIE (acute kidney injury): Status: Acute Assessment and plan: In setting of dehydration but also stones. Cr is improving with IVF. Continue this for now. (5) Altered mental status: Status: Acute Assessment and plan: Acute on what sounds like chronic. Treat UTI. Hydrate. Provide IV thiamine. Obtain MRI brain when kidney function permits contrast. (6) Dehydration: Start date: 12/31/22 Status: Acute Assessment and plan: Continue IVF (7) Hypercalcemia: Start date: 12/31/22 Status: Acute Assessment and plan: I agree that dehydration is likely a part of this, but we cannot rule out malignancy. The patient apparently also used to take vitamin D at home - I am checking that level. (8) Malnutrition: Status: Acute Assessment and plan: BMI of 16.2 kg/m2. Nutrition consulted. Concern for malignancy - undertaking workup on this admission. Additionally, there may be a component of a mental health issue or dementia. Palliative care is consulted. Consider mirtazapine. 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 Once her SADIE is better, will need MRI brain w/w/o contrast, CT chest/abdomen/pelvis w/w/o contrast. We do not know if she has had a colonoscopy - she does have a diagnosis of IBS, but if she had a colonoscopy, per daughter it would have been in the 80s. She has not been up to date on her mammograms. She does smoke. (10) Cigarette smoker: Status: Chronic Assessment and plan: Provide nicotine replacement. (11) IBS (irritable bowel syndrome): Status: Chronic Assessment and plan: As above Symptomatic management (12) Rheumatoid arthritis: Status: Chronic Assessment and plan: Not on treatment. The patient has been resistant to therapy. (13) DVT prophylaxis: Status: Acute Assessment and plan: Sc heparin (14) Discharge planning issues: Status: Acute Assessment and plan: Full code Palliative care consulted Disposition dependent on results of the workup. Subjective Subjective Interval history since last seen: Ms Rojas's daughter is in the room with her when I came to see her. Ms Rojas was initially asleep while I was talking to the daughter - for at least twenty minutes. She did eventually wake up on her own. She said I don't know to questions about pain, shortness of breath, nausea. She did not want me to keep asking her questions and told me to stop touching her, which I obliged. Per daughter, the patient is not in her right mind right now. This didn't happen suddenly - the daughter has noticed cognitive decline over a year ago. The patient had also become progressively more debilitated and wheel chair dependent. She has stopped eating and drinking before but was able to regain weight when she was encouraged to eat/drink/take vitamins. The daughter does question whether Ms Rojas gets bouts of depression. She also does admit that she has been wondering if she is becoming forgetful. Several months ago she stopped picking up the phone at home, and the daughter is wondering if it's because she forgot how to use the phone. Prior to this decline, the patient had mistrust into doctors. There were a couple of medical mishaps with her son at [facility] The other reason she does not trust doctors is because her hands became deformed over the course of a week, but the rheumatology financial sales consultant at [facility] felt it had to have been at least 20 years for that type of damage to happen. The daughter is wondering if it wasn't actually due to a tick-borne illness. The patient chose not to take any therapies for what was thought to be RA. The patient was made aware of her kidney stone 4 years ago, but for various reasons had rescheduled or chosen not to go to her urology appointments. The daughter told me that her mom does not believe that she actually has a kidney stone because her PCP was not able to show her pictures of it in the past. The daughter did express to me that she wanted to have her mother's condition fully worked up. That's what she thinks her mom would want, if she were in her right mind. The patient and daughter met with palliative care today where. In case she is found to have a malignancy, she would consider going home on hospice. Cardiology recommends supportive care, an echocardiogram, but not stress testing or any kind of invasive testing. Exam Narrative Exam Narrative: General: A very frail female who appears cachectic and older than her stated age, A&Ox3, NAD HEENT: EOMI, MMM, rastafarian wasting, poor dental hygiene. Heart: RRR, + both systolic and diastolic murmurs Lungs: CTAB anteriorly Abdomen: soft, nontender, nonistended Extremities: no edema BLEs Objective Last Vital Signs Temp 37.2 C 01/01/23 11:46 Pulse 75 01/01/23 11:46 Resp 14 01/01/23 11:46 BP 105/61 01/01/23 11:46 Pulse Ox 97 01/01/23 11:46 Laboratory Results - last 24 hr 12/31/22 12/31/22 12/31/22 17:21 17:22 17:22 WBC 15.06 H RBC 4.34 Hgb 13.0 Hct 38.0 MCV 88 MCH 30.0 MCHC 34.2 RDW 13.8 Plt Count 469 H MPV 8.0 Immature Gran % 2.1 Neutrophils % 72.2 Lymphocytes % 17.0 Monocytes % 6.9 Eosinophils % 1.1 Basophils % 0.7 Nucleated RBC % 0.0 Absolute Neutrophils 10.87 H Absolute Lymphocytes 2.56 Absolute Monocytes 1.04 H Absolute Eosinophils 0.17 Absolute Basophils 0.11 VBG pH VBG pCO2 VBG pO2 VBG HCO3 VBG Total CO2 VBG O2 Saturation VBG Base Excess Sodium 128 L Potassium 4.5 Chloride 93 L Carbon Dioxide 22.5 Anion Gap 12.5 H BUN 38 H Creatinine 2.5 H Est GFR (CKD-EPI 2020) 20.31 Glucose 98 Calcium 12.7 H* Magnesium 1.8 Total Bilirubin 0.3 AST 18 ALT 15 Alkaline Phosphatase 137 H Ammonia 34 H Troponin I 943 H* C-Reactive Protein Total Protein 7.9 Albumin 3.2 L Triglycerides Total Cholesterol LDL Cholesterol, Calc HDL Cholesterol Procalcitonin TSH Urine Color Urine Clarity Urine pH Ur Specific Steedman Urine Protein Urine Ketones Urine Blood Urine Nitrite Urine Bilirubin Urine Urobilinogen Ur Leukocyte Esterase Urine RBC Urine WBC Ur Epithelial Cells Urine Crystals Urine Bacteria Urine Casts Urine Mucus Ur Culture Indicated? Urine Glucose Add-On Test Request 12/31/22 12/31/22 12/31/22 17:22 18:13 20:23 WBC RBC Hgb Hct MCV MCH MCHC RDW Plt Count MPV Immature Gran % Neutrophils % Lymphocytes % Monocytes % Eosinophils % Basophils % Nucleated RBC % Absolute Neutrophils Absolute Lymphocytes Absolute Monocytes Absolute Eosinophils Absolute Basophils VBG pH 7.39 VBG pCO2 36 L VBG pO2 50 VBG HCO3 22 L VBG Total CO2 20 L VBG O2 Saturation 85 VBG Base Excess -3 L Sodium Potassium Chloride Carbon Dioxide Anion Gap BUN Creatinine Est GFR (CKD-EPI 2020) Glucose Calcium Magnesium Total Bilirubin AST ALT Alkaline Phosphatase Ammonia Troponin I 959 H* C-Reactive Protein Total Protein Albumin Triglycerides Total Cholesterol LDL Cholesterol, Calc HDL Cholesterol Procalcitonin TSH Urine Color Yellow Urine Clarity Sl Cloudy Urine pH 6.0 Ur Specific Steedman 1.015 Urine Protein 30 H Urine Ketones Negative Urine Blood Trace-intact H Urine Nitrite Negative Urine Bilirubin Negative Urine Urobilinogen 0.2 Ur Leukocyte Esterase Moderate H Urine RBC 0-2 Urine WBC 20-50 H Ur Epithelial Cells Many Urine Crystals Negative Urine Bacteria Many Urine Casts Negative Urine Mucus Trace Ur Culture Indicated? No/Sq. Contamination Urine Glucose Negative Add-On Test Request 12/31/22 01/01/23 01/01/23 23:54 07:21 07:21 WBC RBC Hgb Hct MCV MCH MCHC RDW Plt Count MPV Immature Gran % Neutrophils % Lymphocytes % Monocytes % Eosinophils % Basophils % Nucleated RBC % Absolute Neutrophils Absolute Lymphocytes Absolute Monocytes Absolute Eosinophils Absolute Basophils VBG pH VBG pCO2 VBG pO2 VBG HCO3 VBG Total CO2 VBG O2 Saturation VBG Base Excess Sodium Potassium Chloride Carbon Dioxide Anion Gap BUN Creatinine Est GFR (CKD-EPI 2020) Glucose Calcium Magnesium Total Bilirubin AST ALT Alkaline Phosphatase Ammonia Troponin I 849 H* C-Reactive Protein 3.07 H Total Protein Albumin Triglycerides Total Cholesterol LDL Cholesterol, Calc HDL Cholesterol Procalcitonin TSH 0.68 Urine Color Urine Clarity Urine pH Ur Specific Steedman Urine Protein Urine Ketones Urine Blood Urine Nitrite Urine Bilirubin Urine Urobilinogen Ur Leukocyte Esterase Urine RBC Urine WBC Ur Epithelial Cells Urine Crystals Urine Bacteria Urine Casts Urine Mucus Ur Culture Indicated? Urine Glucose Add-On Test Request DONE 01/01/23 01/01/23 01/01/23 07:21 07:25 07:25 WBC RBC Hgb Hct MCV MCH MCHC RDW Plt Count MPV Immature Gran % Neutrophils % Lymphocytes % Monocytes % Eosinophils % Basophils % Nucleated RBC % Absolute Neutrophils Absolute Lymphocytes Absolute Monocytes Absolute Eosinophils Absolute Basophils VBG pH VBG pCO2 VBG pO2 VBG HCO3 VBG Total CO2 VBG O2 Saturation VBG Base Excess Sodium Potassium Chloride Carbon Dioxide Anion Gap BUN Creatinine Est GFR (CKD-EPI 2020) Glucose Calcium Magnesium Total Bilirubin AST ALT Alkaline Phosphatase Ammonia Troponin I 716 H* C-Reactive Protein Total Protein Albumin Triglycerides 149 Total Cholesterol 169 LDL Cholesterol, Calc 97 HDL Cholesterol 43 Procalcitonin 0.1 TSH Urine Color Urine Clarity Urine pH Ur Specific Steed[place] Urine Protein Urine Ketones Urine Blood Urine Nitrite Urine Bilirubin Urine Urobilinogen Ur Leukocyte Esterase Urine RBC Urine WBC Ur Epithelial Cells Urine Crystals Urine Bacteria Urine Casts Urine Mucus Ur Culture Indicated? Urine Glucose Add-On Test Request 01/01/23 01/01/23 07:25 07:25 WBC 12.21 H RBC 3.44 L Hgb 10.6 L D Hct 31.3 L MCV 91 MCH 30.8 MCHC 33.9 RDW 14.2 Plt Count 380 MPV 7.9 L Immature Gran % Neutrophils % Lymphocytes % Monocytes % Eosinophils % Basophils % Nucleated RBC % Absolute Neutrophils Absolute Lymphocytes Absolute Monocytes Absolute Eosinophils Absolute Basophils VBG pH VBG pCO2 VBG pO2 VBG HCO3 VBG Total CO2 VBG O2 Saturation VBG Base Excess Sodium 131 L Potassium 3.3 L D Chloride 99 Carbon Dioxide 19.3 L Anion Gap 12.7 H BUN 39 H Creatinine 2.3 H Est GFR (CKD-EPI 2020) 22.45 Glucose 150 H Calcium 10.6 H Magnesium 1.5 L Total Bilirubin 0.1 L AST 17 ALT 14 Alkaline Phosphatase 102 Ammonia Troponin I C-Reactive Protein Total Protein 5.9 L Albumin 2.3 L Triglycerides Total Cholesterol LDL Cholesterol, Calc HDL Cholesterol Procalcitonin TSH Urine Color Urine Clarity Urine pH Ur Specific Steedman Urine Protein Urine Ketones Urine Blood Urine Nitrite Urine Bilirubin Urine Urobilinogen Ur Leukocyte Esterase Urine RBC Urine WBC Ur Epithelial Cells Urine Crystals Urine Bacteria Urine Casts Urine Mucus Ur Culture Indicated? Urine Glucose Add-On Test Request Time Spent with Patient Time Spent with Patient: 35-49 minutes Time was spent: preparing to see the patient(eg.review tests), obtaining and/or reviewing separately otained hiistory, ordering medications,tests, procedures, referring, communicating with other health adult caregiver, indepentently interpreting results, counseling the patient and care coordination
[2023-01-01 17:41] LABS: Ionized Calcium 1.46 mmol/L (1.14-1.35)
[2023-01-01] MEDS: cefTRIAXone 1 GM/50 ML BAG IVPB (17:47)
[2023-01-01] MEDS: THIAMINE 500 MG in Normal Saline 100 ML 100 MG IVPB (17:48)
[2023-01-01] MEDS: Nicotine 7 MG/24 HR PATCH TD (17:52)
[2023-01-01 18:37] LABS: Osmolality Serum 278 mOsm/kg (275-295)
[2023-01-01 19:11] VITALS: BP 111/67; PULSE 75; RESP 19; TEMP 36.9; O2SAT 96
[2023-01-01 23:33] VITALS: BP 118/62; PULSE 75; RESP 19; TEMP 36.8; O2SAT 95
[2023-01-02] MEDS: THIAMINE 500 MG in Normal Saline 100 ML 100 MG IVPB ×3 (01:02→17:42)
[2023-01-02 06:27] VITALS: PULSE 75
[2023-01-02 07:21] VITALS: BP 116/70; PULSE 75; TEMP 36.9; O2SAT 99
[2023-01-02 07:32] LABS: Abs Immature Grans 0.09 10^3/uL (0.0-0.06); Absolute Eosinophil Count 0.31 10^3/uL (0.0-0.7); Absolute Lymphocyte Count 2.38 10^3/uL (1.2-3.4); Basophils % 0.5; Eosinophils % 2.8; HCT 28.3 % (36.0-46.0); HGB 9.6 g/dL (11.2-15.7); Immature Grans % 0.8; Lymphocytes % 21.6; MCH 30.5 pg (27.0-33.0); MCHC 33.9 % (32.0-36.0); MCV 90 fL (80-95); MPV 8.1 fL (8.0-11.0); Monocytes % 5.3; Platelet Count 349 10^3/uL (130-400); RBC 3.15 10^6/uL (3.93-5.22); RDW 14.4 % (11.7-14.6); RDW-SD 46.9 fL; WBC 11.04 10^3/uL (4.4-10.8)
[2023-01-02 07:46] LABS: Absolute Basophil Count 0.06 10^3/uL (0.0-0.2); Absolute Monocyte Count 0.59 10^3/uL (0.1-0.8); Absolute Neutrophil Count 7.62 10^3/uL (1.2-6.7)
[2023-01-02 07:55] LABS: Anion Gap 13.7 mmol/L (3-11); BUN 27 mg/dL (7-18); C-Reactive Protein 1.74 mg/dL (0.0-0.3); CO2 15.3 mmol/L (21.0-32.0); CREATININE 1.9 mg/dL (0.55-1.02); Calcium 10.1 mg/dL (8.5-10.1); Chloride 105 mmol/L (98-107); Estimated GFR 28.23 (mL/min/1.73m2); Ferritin 70 ng/mL (8-252); Glucose 89 mg/dL (74-106); Magnesium 2.3 mg/dL (1.8-2.4); Potassium 3.4 mmol/L (3.5-5.1); Sodium 134 mmol/L (136-145)
[2023-01-02 08:04] LABS: Calculated LDL 87 mg/dL (<100); Cholesterol 156 mg/dL (<200); Folate > 20.0 ng/mL (8.6-20.0); HDL Cholesterol 42 mg/dL (40-60); Triglyceride 139 mg/dL (<150); Vitamin B12 1082 pg/mL (193-986)
[2023-01-02 08:12] LABS: Iron 48 ug/dL (50-170); Total Iron Binding Capacity 195 ug/dL (250-450); Transferrin Sat 25 % (15-50)
[2023-01-02 08:27] LABS: BE (Venous) -9 mmol/L (-2-3); HCO3 (Venous) 17 mmol/L (23-28); O2 Sat (Venous) 67 %; TCO2 (Venous) 16 mmol/L (24-29); pCO2 (Venous) 30 mmHg (41-51); pH (Venous) 7.35 (7.31-7.41); pO2 (Venous) 34 mmHg
[2023-01-02 08:28] LABS: Lactate 0.7 mmol/L (0.6-1.4)
[2023-01-02 08:35] LABS: Vitamin D 25 Total 29.8 ng/mL (30-100)
[2023-01-02] MEDS: Normal Saline Flush 10 ML SYR IVP (10:51)
--- NOTE | 2023-01-02 11:10 | PT.INNT ---
PT Notes Visit Reasons: Dehydration, UTI, Failure to Thrive pt and daughter decided not to have PT this am. Daughter reports that her mother is overwhelmed right now with all the testing etc and doesn't feel that PT is needed at this time. She would like her have PT but only when she is ready.
[2023-01-02 14:25] VITALS: BP 132/72; PULSE 72; RESP 16; TEMP 36.8; O2SAT 92
[2023-01-02] MEDS: cefTRIAXone 1 GM/50 ML BAG IVPB (17:16)
--- NOTE | 2023-01-02 17:40 | W.PM.PROGNOT ---
Date of Service Date of service: 01/02/23 Time of Service: 17:40 Assessment and Plan Assessment and plan (1) Urinary tract infection: Start date: 12/31/22 Status: Acute Assessment and plan: Present on admission. Urine C&S from 12/22/22 grew E. Coli and GPC. E. coli was sensitive to ceftriaxone. It does not appear that the urine from last night was cultured. Repeat urine culture also not done. Seen by urology: if interested in treatment, would need a percutaneous nephrolithotomy. Continue empiric ceftriaxone. (2) NSTEMI (non-ST elevated myocardial infarction): Status: Acute Assessment and plan: Await an echo. Monitor on tele. Not a candidate for invasive therapy. Supportive therapy. Asa, statin. While lipids at goal, would still benefit from statin at this time since this may have been an acute event. (3) Staghorn renal calculus: Status: Acute Assessment and plan: as above (4) SADIE (acute kidney injury): Status: Acute Assessment and plan: In setting of dehydration but also stones. Cr is improving with IVF. Continue IVF. Encourage PO. (5) Altered mental status: Status: Acute Assessment and plan: Acute on what sounds like chronic. Treat UTI. Hydrate. Provide IV thiamine. Obtain MRI brain when kidney function permits contrast. (6) Dehydration: Start date: 12/31/22 Status: Acute Assessment and plan: Continue IVF (7) Hypercalcemia: Start date: 12/31/22 Status: Resolved Assessment and plan: I agree that dehydration is likely a part of this, but we cannot rule out malignancy. Vitamin D not high, so ok to continue supplementation. (8) Malnutrition: Status: Acute Assessment and plan: BMI of 16.2 kg/m2. Nutrition consulted. Encourage protein shakes. Concern for malignancy - undertaking workup on this admission. Additionally, there may be a component of a mental health issue or dementia. Palliative care is consulted. Consider mirtazapine. 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 Once her SADIE is better, will need MRI brain w/w/o contrast, CT chest/abdomen/pelvis w/w/o contrast. We do not know if she has had a colonoscopy - she does have a diagnosis of IBS, but if she had a colonoscopy, per daughter it would have been in the 80s. She has not been up to date on her mammograms. She does smoke. (10) Cigarette smoker: Status: Chronic Assessment and plan: Provide nicotine replacement. (11) IBS (irritable bowel syndrome): Status: Chronic Assessment and plan: As above Symptomatic management (12) Rheumatoid arthritis: Status: Chronic Assessment and plan: Not on treatment. The patient has been resistant to therapy. (13) DVT prophylaxis: Status: Acute Assessment and plan: Sc heparin (14) Discharge planning issues: Status: Acute Assessment and plan: Full code Palliative care consulted Disposition dependent on results of the workup. Subjective Subjective Interval history since last seen: Ms Rojas states she is feeling better today. She says that she does not feel like she has more energy, but does feel better. It sounds like she has been eating predominantly fruits and vegetables at home, relatively little protein. Per daughter, she has remained in the 80-90 lbs range for the last year or so, and there has not been rapid weight loss in the last few months, as signed out to me. Denies dizziness, CP, SOB, n/v. Willing to try protein shakes and magic cups. The daughter questioned why the patient was on aspirin and statin - we discussed the cardiac indication. The daughter also wondered if the patient needed to be on chemical DVT ppx - I explained that yes, it is indicated for patients in her condition. She will think about it. Exam Narrative Exam Narrative: General: A very frail female, cachectic, appears older than her stated age, A&Ox2, NAD, does look a little perkier today HEENT: EOMI, MMM, congregational wasting, poor dental hygiene. Heart: RRR, + both systolic and diastolic murmurs Lungs: CTAB anteriorly Abdomen: soft, nontender, nonistended Extremities: no edema BLEs Objective Last Vital Signs Temp 36.8 C 01/02/23 14:25 Pulse 72 01/02/23 14:25 Resp 16 01/02/23 14:25 BP 132/72 01/02/23 14:25 Pulse Ox 92 01/02/23 14:25 Laboratory Results - last 24 hr 01/02/23 01/02/23 01/02/23 07:05 07:05 07:05 WBC 11.04 H RBC 3.15 L Hgb 9.6 L Hct 28.3 L MCV 90 MCH 30.5 MCHC 33.9 RDW 14.4 Plt Count 349 MPV 8.1 Immature Gran % 0.8 Neutrophils % 69.0 Lymphocytes % 21.6 Monocytes % 5.3 Eosinophils % 2.8 Basophils % 0.5 Nucleated RBC % 0.0 Absolute Neutrophils 7.62 H Absolute Lymphocytes 2.38 Absolute Monocytes 0.59 Absolute Eosinophils 0.31 Absolute Basophils 0.06 VBG pH VBG pCO2 VBG pO2 VBG HCO3 VBG Total CO2 VBG O2 Saturation VBG Base Excess VBG Lactate Sodium 134 L Potassium 3.4 L Chloride 105 Carbon Dioxide 15.3 L Anion Gap 13.7 H BUN 27 H Creatinine 1.9 H Est GFR (CKD-EPI 2020) 28.23 Glucose 89 Calcium 10.1 Magnesium 2.3 Iron TIBC Transferrin % Sat Ferritin 70 C-Reactive Protein 1.74 H Triglycerides Total Cholesterol LDL Cholesterol, Calc HDL Cholesterol Vitamin B12 25-OH Vitamin D Total 29.8 L Folate 01/02/23 01/02/23 01/02/23 07:05 07:05 08:20 WBC RBC Hgb Hct MCV MCH MCHC RDW Plt Count MPV Immature Gran % Neutrophils % Lymphocytes % Monocytes % Eosinophils % Basophils % Nucleated RBC % Absolute Neutrophils Absolute Lymphocytes Absolute Monocytes Absolute Eosinophils Absolute Basophils VBG pH VBG pCO2 VBG pO2 VBG HCO3 VBG Total CO2 VBG O2 Saturation VBG Base Excess VBG Lactate 0.7 Sodium Potassium Chloride Carbon Dioxide Anion Gap BUN Creatinine Est GFR (CKD-EPI 2020) Glucose Calcium Magnesium Iron 48 L TIBC 195 L Transferrin % Sat 25 Ferritin C-Reactive Protein Triglycerides 139 Total Cholesterol 156 LDL Cholesterol, Calc 87 HDL Cholesterol 42 Vitamin B12 1082 H 25-OH Vitamin D Total Folate > 20.0 H 01/02/23 08:20 WBC RBC Hgb Hct MCV MCH MCHC RDW Plt Count MPV Immature Gran % Neutrophils % Lymphocytes % Monocytes % Eosinophils % Basophils % Nucleated RBC % Absolute Neutrophils Absolute Lymphocytes Absolute Monocytes Absolute Eosinophils Absolute Basophils VBG pH 7.35 VBG pCO2 30 L VBG pO2 34 VBG HCO3 17 L VBG Total CO2 16 L VBG O2 Saturation 67 VBG Base Excess -9 L VBG Lactate Sodium Potassium Chloride Carbon Dioxide Anion Gap BUN Creatinine Est GFR (CKD-EPI 2020) Glucose Calcium Magnesium Iron TIBC Transferrin % Sat Ferritin C-Reactive Protein Triglycerides Total Cholesterol LDL Cholesterol, Calc HDL Cholesterol Vitamin B12 25-OH Vitamin D Total Folate Objective Narrative Objective Narrative: US abdomen; 1. The garett hepatis cannot be adequately evaluated due to overlying bowel gas.? The calcified lymph nodes are best appreciated on the CT scan from 12/31/2022. 2. Contracted gallbladder.? Cholelithiasis.? No biliary ductal dilatation.? CT head: Exam severely limited by motion.? No acute abnormality seen on portions of the brain without motion. Time Spent with Patient Time Spent with Patient: 25-34 minutes Time was spent: preparing to see the patient(eg.review tests), obtaining and/or reviewing separately otained hiistory, ordering medications,tests, procedures, referring, communicating with other health manager respiratory care, indepentently interpreting results, counseling the patient and care coordination
[2023-01-02] MEDS: Nicotine 7 MG/24 HR PATCH TD (18:35)
[2023-01-02 20:29] VITALS: BP 125/67; PULSE 74; RESP 18; TEMP 36.6; O2SAT 97
[2023-01-02] MEDS: Atorvastatin 40 MG TAB PO (20:44)
--- NOTE | 2023-01-03 00:10 | NUR.NOTE ---
Nursing Note:Patient's daughter states that patient is complaining of chest pain. Patient denies chest pain. Vital signs assessed with breath and lung sounds, no abnormalities. Telemetry shows normal sinus.
[2023-01-03 00:47] VITALS: BP 124/70; PULSE 70; RESP 18; TEMP 36.8; O2SAT 95
[2023-01-03] MEDS: THIAMINE 500 MG in Normal Saline 100 ML 200 MG IVPB ×3 (02:51→18:18)
[2023-01-03 04:07] VITALS: BP 125/71; PULSE 70; RESP 18; TEMP 36.8; O2SAT 96
--- NOTE | 2023-01-03 06:18 | NUR.NOTE ---
Nursing Note: Attempted to remove covering and wrap over IV access to cover over gauze with kenji wrap. Patient refused to allow wrapping the site with kenji wrap. Patient wanted to pull out the IV access, I told her that we need that for her medication. Patient refused to allow flushing the site. Patient has a lot of peripheral pain and expects interventions to cause discomfort with her rheumatoid arthritis. I told her that I would check on her once more before shift change.
[2023-01-03 06:45] LABS: Abs Immature Grans 0.11 10^3/uL (0.0-0.06); Absolute Basophil Count 0.05 10^3/uL (0.0-0.2); Absolute Eosinophil Count 0.35 10^3/uL (0.0-0.7); Absolute Lymphocyte Count 1.97 10^3/uL (1.2-3.4); Absolute Monocyte Count 0.55 10^3/uL (0.1-0.8); Absolute Neutrophil Count 7.24 10^3/uL (1.2-6.7); Basophils % 0.5; Eosinophils % 3.4; HCT 29.5 % (36.0-46.0); HGB 10.1 g/dL (11.2-15.7); Immature Grans % 1.1; Lymphocytes % 19.2; MCH 30.3 pg (27.0-33.0); MCHC 34.2 % (32.0-36.0); MCV 89 fL (80-95); MPV 7.7 fL (8.0-11.0); Monocytes % 5.4; Neutrophils % 70.4; Platelet Count 333 10^3/uL (130-400); RBC 3.33 10^6/uL (3.93-5.22); RDW 14.3 % (11.7-14.6); RDW-SD 45.8 fL; WBC 10.27 10^3/uL (4.4-10.8)
[2023-01-03 07:11] LABS: Anion Gap 11.1 mmol/L (3-11); BUN 19 mg/dL (7-18); CO2 17.9 mmol/L (21.0-32.0); CREATININE 2.1 mg/dL (0.55-1.02); Calcium 10.6 mg/dL (8.5-10.1); Chloride 107 mmol/L (98-107); Estimated GFR 25.04 (mL/min/1.73m2); Glucose 68 mg/dL (74-106); Magnesium 1.8 mg/dL (1.8-2.4); Potassium 3.1 mmol/L (3.5-5.1); Sodium 136 mmol/L (136-145)
[2023-01-03] MEDS: Normal Saline Flush 10 ML SYR IVP (08:16)
[2023-01-03] MEDS: Aspirin 81 MG CHEW PO (08:34)
[2023-01-03 10:02] VITALS: BP 122/75; PULSE 85; RESP 18; TEMP 37.2; O2SAT 94
[2023-01-03 10:03] VITALS: O2SAT 94
--- NOTE | 2023-01-03 12:09 | PTTR_ITS ---
PT Notes Visit Reasons: Dehydration, UTI, Failure to Thrive Inpatient Physical Therapy Treatment Note [facility] Date: 01/03/23 SUBJECTIVE:Bren and daughter refused PT this am, however later in the am nursing requested help transferring Bren to [facility] and daughter had requested nurse get help from myself. OBJECTIVE: []? Therapeutic Activities ([id number]): Direct one-on-one instruction in dynamic activities to improve functional performance. ? BED MOBILITY/TRANSFERS? Rolling L/R:mod A of 1 Supine-sit: mod A of 1 ? Sit-supine: mod A of 1 ? Sit-stand: max A x2 ? Stand-sit: Max A x2 ? Provided skilled cues and instruction on performance and technique throughout. ? ASSESSMENT:? transferred to [facility] stand pivot. Bren was not interested in helping out at all. She was able to sit on commode and was successful urinating. Complete bed change due to incontinence. Daughter kept apologizing to her mother t/o session and tried to keep her calm, as Bren was screaming and yelling out. She does not want help from anyone including her daughter. I felt like Bren did better and was calmer when daughter not directly helping. PLAN: continue to work on progressing her strength and functional mobility. TREATMENT CODE/TIME: 30 min. from [id number]. ([id number])
[2023-01-03] MEDS: Nicotine 7 MG/24 HR PATCH TD (14:49)
--- NOTE | 2023-01-03 15:38 | PGE_ITS ---
Date of Service Date of service: 01/03/23 Time of Service: 15:40 Assessment and Plan Assessment and plan (1) Urinary tract infection: Start date: 12/31/22 Status: Acute Assessment and plan: Present on admission. Urine C&S from 12/22/22 grew E. Coli and GPC. E. coli was sensitive to ceftriaxone. The patient has not been able to provide a noncontaminated sample here, has been incontinent, and a straight cath sample will be too traumatic for her. Seen by urology: if interested in treatment, would need a percutaneous nephrolithotomy. Continue empiric ceftriaxone. (2) NSTEMI (non-ST elevated myocardial infarction): Status: Acute Assessment and plan: Await an echo. Monitor on tele. Not a candidate for invasive therapy. Supportive therapy. Asa, statin. While lipids at goal, would still benefit from statin at this time since this may have been an acute event. (3) Staghorn renal calculus: Status: Acute Assessment and plan: as above (4) SADIE (acute kidney injury): Status: Acute Assessment and plan: In setting of dehydration but also stones. Unfortunately, did not receive IVF last night. Cr is worse today probably due to this. I am encouraged that she is drinking fluids today. Continue to encourage that. We will obtain a midline today and resume IVF. (5) Altered mental status: Status: Acute Assessment and plan: Acute on what sounds like chronic. Treat UTI. Hydrate. Continue thiamine (since she has been so malnourished; no hx of EtOH). Obtain MRI brain when kidney function permits contrast. Due to word finding difficulties, I did consult speech therapy. COnsider neurology consult, on inpatient vs outpatient basis, depending on the MRI results. (6) Dehydration: Start date: 12/31/22 Status: Acute Assessment and plan: Continue IVF (7) Hypercalcemia: Start date: 12/31/22 Status: Resolved Assessment and plan: I agree that dehydration is likely a part of this, but we cannot rule out malignancy. Vitamin D not high, so ok to continue supplementation. (8) Malnutrition: Status: Acute Assessment and plan: BMI of 16.2 kg/m2. Nutrition consulted. Encourage protein shakes. Concern for malignancy - for CT chest/abdomen/pelvis once Cr permits. Additionally, there may be a component of a mental health issue or dementia. Palliative care is consulted. Consider mirtazapine. 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 Once her SADIE is better, will need MRI brain w/w/o contrast, CT chest/abdomen/pelvis w/ contrast. We do not know if she has had a colonoscopy - she does have a diagnosis of IBS, but if she had a colonoscopy, per daughter it would have been in the 80s. She has not been up to date on her mammograms. She does smoke. (10) Cigarette smoker: Status: Chronic Assessment and plan: Provide nicotine replacement. (11) IBS (irritable bowel syndrome): Status: Chronic Assessment and plan: As above Symptomatic management (12) Rheumatoid arthritis: Status: Chronic Assessment and plan: Not on treatment. The patient has been resistant to therapy. I did write for voltaren gel for her hands to see if the patient would be interested in this. I have also added an OT consult to see if any devices can be used to make eating easier for her. (13) DVT prophylaxis: Status: Acute Assessment and plan: Sc heparin (14) Discharge planning issues: Status: Acute Assessment and plan: Full code Palliative care consulted Disposition dependent on results of the workup. Subjective Subjective Interval history since last seen: Ms Rojas did not have IV fluids running overnight. She did have quite a bit more to eat and drink today. She did not like the chocolate ensure. Lost her IV access. Daughter/patient agree to have a midline placed. We discussed using lidocaine and something to calm her down prior to doing this. The daughter noticed that her mom corrected herself today when she made a wrong choice, which is the first time this has happened. Denies dizziness, CP, SOB, n/v. Exam Narrative Exam Narrative: General: A very frail female, cachectic, appears older than her stated age, A&Ox1, NAD; the patient's daughter answers the majority of the questions for her. HEENT: EOMI, MMM, caodaism wasting, poor dental hygiene. Heart: RRR, + both systolic and diastolic murmurs Lungs: CTAB Abdomen: soft, nontender, nonistended Extremities: no edema BLEs, contracted hands B. Objective Last Vital Signs Temp 37.2 C 01/03/23 10:02 Pulse 85 01/03/23 10:02 Resp 18 01/03/23 10:02 BP 122/75 01/03/23 10:02 Pulse Ox 94 01/03/23 10:03 Laboratory Results - last 24 hr 12/31/22 01/01/23 01/01/23 17:22 07:21 07:25 WBC RBC Hgb Hct MCV MCH MCHC RDW Plt Count MPV Immature Gran % Neutrophils % Lymphocytes % Monocytes % Eosinophils % Basophils % Nucleated RBC % Absolute Neutrophils Absolute Lymphocytes Absolute Monocytes Absolute Eosinophils Absolute Basophils Sodium Potassium Chloride Carbon Dioxide Anion Gap BUN Creatinine Est GFR (CKD-EPI 2020) Glucose Serum Osmolality 278 Calcium Ionized Calcium 1.46 H Magnesium Cortisol 38 01/03/23 01/03/23 06:40 06:40 WBC 10.27 RBC 3.33 L Hgb 10.1 L Hct 29.5 L MCV 89 MCH 30.3 MCHC 34.2 RDW 14.3 Plt Count 333 MPV 7.7 L Immature Gran % 1.1 Neutrophils % 70.4 Lymphocytes % 19.2 Monocytes % 5.4 Eosinophils % 3.4 Basophils % 0.5 Nucleated RBC % 0.0 Absolute Neutrophils 7.24 H Absolute Lymphocytes 1.97 Absolute Monocytes 0.55 Absolute Eosinophils 0.35 Absolute Basophils 0.05 Sodium 136 Potassium 3.1 L Chloride 107 Carbon Dioxide 17.9 L Anion Gap 11.1 H BUN 19 H Creatinine 2.1 H Est GFR (CKD-EPI 2020) 25.04 Glucose 68 L Serum Osmolality Calcium 10.6 H Ionized Calcium Magnesium 1.8 Cortisol Time Spent with Patient Time Spent with Patient: 25-34 minutes Time was spent: preparing to see the patient(eg.review tests), obtaining and/or reviewing separately otained hiistory, ordering medications,tests, procedures, referring, communicating with other health acute care clinical nurse specialist, indepentently interpreting results, counseling the patient and care coordination
[2023-01-03] MEDS: LORazepam 2 MG/1 ML Oral Concentrate 0.5 MG PO (18:00)
[2023-01-03 19:00] VITALS: BP 95/61; PULSE 76; RESP 18; TEMP 36.6; O2SAT 97
[2023-01-03] MEDS: cefTRIAXone 1 GM/50 ML BAG IVPB (20:14)
[2023-01-03] MEDS: Atorvastatin 40 MG TAB PO (20:15)
[2023-01-03 23:43] VITALS: BP 97/59; PULSE 77; RESP 18; TEMP 36.8; O2SAT 95
[2023-01-04 03:54] VITALS: BP 90/55; PULSE 73; RESP 16; TEMP 36.3; O2SAT 97
[2023-01-04 04:00] VITALS: BP 108/62
[2023-01-04] MEDS: THIAMINE 500 MG in Normal Saline 100 ML 200 MG IVPB (04:21)
[2023-01-04 06:16] LABS: Abs Immature Grans 0.07 10^3/uL (0.0-0.06); Absolute Basophil Count 0.04 10^3/uL (0.0-0.2); Absolute Eosinophil Count 0.41 10^3/uL (0.0-0.7); Absolute Lymphocyte Count 1.98 10^3/uL (1.2-3.4); Absolute Monocyte Count 0.64 10^3/uL (0.1-0.8); Absolute Neutrophil Count 6.63 10^3/uL (1.2-6.7); Basophils % 0.4; Eosinophils % 4.2; HCT 25.6 % (36.0-46.0); HGB 8.9 g/dL (11.2-15.7); Immature Grans % 0.7; Lymphocytes % 20.3; MCH 30.6 pg (27.0-33.0); MCHC 34.8 % (32.0-36.0); MCV 88 fL (80-95); MPV 8.1 fL (8.0-11.0); Monocytes % 6.6; Neutrophils % 67.8; Platelet Count 324 10^3/uL (130-400); RBC 2.91 10^6/uL (3.93-5.22); RDW 14.4 % (11.7-14.6); RDW-SD 45.5 fL; WBC 9.77 10^3/uL (4.4-10.8)
[2023-01-04 06:35] LABS: Anion Gap 9.8 mmol/L (3-11); BUN 14 mg/dL (7-18); CO2 18.2 mmol/L (21.0-32.0); CREATININE 1.8 mg/dL (0.55-1.02); Calcium 10.3 mg/dL (8.5-10.1); Chloride 107 mmol/L (98-107); Estimated GFR 30.12 (mL/min/1.73m2); Glucose 92 mg/dL (74-106); Magnesium 1.4 mg/dL (1.8-2.4); Potassium 3.2 mmol/L (3.5-5.1); Sodium 135 mmol/L (136-145)
[2023-01-04 07:51] VITALS: BP 88/57; PULSE 75; RESP 16; TEMP 36.7; O2SAT 97
[2023-01-04] MEDS: Heparin 5,000 UNITS/ML VIAL 5000 UNITS SC ×2 (08:07→21:45)
[2023-01-04] MEDS: Cholecalciferol (Vitamin D3) 1,000 UNIT TAB 1000 UNITS PO (08:08)
[2023-01-04] MEDS: Aspirin 81 MG CHEW PO (08:08)
[2023-01-04] MEDS: Multivitamin w/Minerals TAB 1 TAB PO (08:08)
--- NOTE | 2023-01-04 09:10 | OT.INIE ---
Occupational Therapy Notes Inpatient Occupational Therapy Evaluation Date: 01/04/23 Referring Doctor: Lorrie Huff MD OT Orders: Non Urgent Precautions: Fall, Standard, Full PATIENT PROFILE/ADMITTING DIAGNOSIS: Pt is a 67 year old female who was admitted through the ED with the following dx of SADIE, malnutrition, NSTEMI, hypercalcemia, elevated tropinin level, dehydration, UTI, altered mental status, failure to thrive as an adult, rheumatoid arthritis, nodular scleritis (L) eye, hyperlipidemia, IBS, staghorn renal calculus, smoker. Past Medical History: All Active Problems Hypercalcemia (Acute) Elevated troponin level not due myocardial infarction (Acute) Dehydration (Acute) Urinary tract infection (Acute) Altered mental status (Acute) Failure to thrive in adult (Chronic) Rheumatoid arthritis (Chronic) Declines medical treatment. Last saw [facility] in 2004Nodular scleritis of left eye (Chronic) Hyperlipidemia (Chronic) IBS (irritable bowel syndrome) (Chronic) Staghorn renal calculus (Acute ~07/2018) Cigarette smoker (Chronic) Medical History?(Updated 12/31/22 @ 23:38 by Yaniv Chavez) Hematuria (~07/2018) Lyme disease Social History/Home Situation: Pts baseline was provided by her daughter in which she noted- Pt lives in a private home with daughter and daughter in law as her caregivers. She reports that her moms hands are deformed from an RA issue. Pts daughter reports that she (A) her mom with most of her ADLs. She does note falls in the home in which her mom won't go into the shower. Pts daughter states that someone is in the home 24 hours a day with pt except when performing grocery shopping. Pts appearance is not well kept. She has long fingernails in which her daughter states that she cuts her moms nails but her mom has not let her for a while now. Her hair is visibly dirty and her daughter says multiple times throughout each session that they have all the adaptive equipment that they need. Pt does not answer a lot of the questions her daughter does tend to speak for her. OT does ask pt if she would like to be more (I) with her ADLs or if she feels that she is at her baseline. She reports yes and then the daughter paraphrases to her mom do you feel like I give you enough help. OT and pts daughter discuss HH which pt seemed receptive to but daughter did not. Equipment owned/DME: Per pts daughter report pt has FWWs, grab bars, raised toilet seat, commode in the basement which they don't use, shower bench. SUBJECTIVE: Pt was lying in bed when OT arrived. She is agreeable to OT session. Pts daughter does most of the talking and doesn't allow pt to answer questions. Pts daughter notes that I'm sure services are important but they are not a priority so they can wait. OT does explain the role of evaluation to pts daughter and then discusses with pt what services are. Pt is agreeable to OT consult. OBJECTIVE: General Observation: Pleasant, malnourished, deformities to (B) hands with joints and joint contractures. IV in (R) UE, telemetry on, Wrap on (R) UE, slight increased edema in (R) hand. Mental Status: A&Ox2 but unable to really assess as pts daughter speaks for her Pain: Unable to assess ROM: RUE Limited ROM in (B) with contracted digits and lack of functional control of digits d/t contractures L UE Limited ROM in (B) with contracted digits and lack of functional control of digits d/t contractures STRENGTH: RUE 3/5 with notable weak single resource boss LUE 3/5 with notable weak single resource boss FUNCTIONAL MOBILITY/ADLS: EATING Pt was eating with her daughter present when OT arrived. Her daughter was feeding her but states that she can hold silverware in her hand. Pt was not able to demonstrate this (I) this morning. Her contracted nature of her hands is a big limiting factor of her (I). BALANCE: Static sitting Good Dynamic Sitting Good SPECIAL TESTS: Daily Activity Limitations Standardized Measure [facility] AM -PAC ?6 clicks? Daily Activity Inpatient Short Form: Raw score: 13 Standardized score: 32.03 CMS score: 63.03% INFORMED CONSENT/EDUCATION: Pt instructed in purpose of OT Consult and plan of care. ASSESSMENT: Patient is a 67-year-old female referred to occupational therapy services with diagnosis of SADIE, malnutrition, NSTEMI, hypercalcemia, elevated tropinin level, dehydration, UTI, altered mental status, failure to thrive as an adult, rheumatoid arthritis, nodular scleritis (L) eye, hyperlipidemia, IBS, staghorn renal calculus, smoker. Patient presents with clinical signs and symptoms consistent with dx, as demonstrated by the following impairment level findings/functional limitations: Impairments in ADL/IADL And leisure activities, contracted hands/digits which pts daughter reports as chronic. Decreased functional activity tolerance, decreased functional mobility, decreased functional (I) in ADLs which does require (A) for performance. AMPAC score 13 Patient is assessed as a Moderate 64711 complexity based on the following: History: see above Examination: see functional limitations as noted above Presentation: evolving Decision Makin GOALS Goals x1 week 1. Oral hygiene (I) in seated positio 2. Dressing (I) UE and mod (A) LE 3. Bathing (I) UE and min (A) LE 4. Toileting on toilet min (A) 5. Eating (I) PLAN OF CARE/TREATMENT PLAN: 1x/day, 3 days/ week x 1week Initiate Occupational Therapy Services for bathing, dressing, grooming, toileting, eating, transfer training. DISCHARGE RECOMMENDATIONS SNF vs. home with HH services when medically cleared per MD and based on pts progress towards goals established. TREATMENT TIME/MINUTES/CODES 89909, 35 minutes Kate Hdez OTR/L [facility] [place], [place]
[2023-01-04] MEDS: Diclofenac 1% Gel 100 GM TUBE TP (09:16)
[2023-01-04] MEDS: Lactated Ringers 250 ML IV (10:48)
--- NOTE | 2023-01-04 10:52 | CMPROGNOTE_ITS ---
Date of service: 01/04/23 Time of Service: 10:52 Care Management Progress Note Progress Note Text Progress Note Text: S/O: Bren was lying in bed when CM met with her. Her daughter had stepped away, and she was agreeable to talk with CM, and engaged fairly well. She was able to identify herself, but was not oriented to place or time; she could not identify where she currently lives, or details about her grandchildren. She answered most questions vaguely, and often stated we have work to do, or we'll see how it goes. Later, CM spent a lot of time talking with Leni, her daughter who cares for her at home. Leni expressed frustration about her mother telling her that she wants to live, and then not being cooperative with staff to complete tests, or pulling out her IV (she pulled out her midline this afternoon, shortly before this visit). Leni also feels frustrated about not having answers about why her mother's condition is so poor. She reported that she recognizes that her mother has cognitively declined, but she feels that she has been able to bounce back from illness before, and wonders if her cognitive decline is due to an acute concern, or if this is a new baseline. Leni reports that she is struggling with considering the next steps without having more information. Bren is scheduled to have CT scans tomorrow. She was not able to have her echo today, due to agitation, and her mother stating that she did not want to continue. CM provided education around patient rights, and discussed expectations, as she may not have all of the definitive answers that she is looking for before she returns home. Leni stated that she plans to bring her mother home once she is medically ready, but is concerned about her going home too soon. CM discussed options for discharge, including HH services vs hospice support. CM will continue to support Bren and her family with discharge planning considerations. A: Bren is a 67 year old female admitted to [facility] on 12/31/22 for dehydration, UTI, FTT. P: Anticipate Bren will return home once medically cleared with new orders for HH services. Her daughter, Vicky, will continue to care for her at home. Palliative care is meeting with Bren and Vicky to discuss goals of care. She will follow up with her PCP and discharge plan of care. CM will continue to follow.
[2023-01-04 11:52] VITALS: BP 126/75; PULSE 74; RESP 18; TEMP 36.6; O2SAT 100
[2023-01-04] MEDS: Nicotine 7 MG/24 HR PATCH TD (12:15)
--- NOTE | 2023-01-04 12:18 | STREC_ITS ---
Date of service: 01/04/23 Time of Service: 12:19 Speech Therapy Recommendations Report ST Recommendations: SLIPMAN consult received; chart review completed. SLIPMAN contacted nursing- patient not appropriate for SLIPMAN evaluation at this time due to behavioral factors and fr equent refusal of care. Will re-attempt as indicated. Coding
--- NOTE | 2023-01-04 12:18 | PDOC.STREC ---
Date of service: 01/04/23 Time of Service: 12:19 Speech Therapy Recommendations Report ST Recommendations: TONE ARTIST APPRENTICE consult received; chart review completed. TONE ARTIST APPRENTICE contacted nursing- patient not appropriate for TONE ARTIST APPRENTICE evaluation at this time due to behavioral factors and frequent refusal of care. Will re-attempt as indicated. Coding
[2023-01-04 15:06] VITALS: O2SAT 100
--- NOTE | 2023-01-04 17:55 | PGE_ITS ---
Date of Service Date of service: 01/04/23 Time of Service: 17:55 Assessment and Plan Assessment and plan (1) Urinary tract infection: Start date: 12/31/22 Status: Acute Assessment and plan: Present on admission. Urine C&S from 12/22/22 grew E. Coli and GPC. E. coli was sensitive to ceftriaxone. The patient has not been able to provide a noncontaminated sample here, has been incontinent, and a straight cath sample will be too traumatic for her. Seen by urology: if interested in treatment, would need a percutaneous nephrolithotomy. Continue empiric ceftriaxone. She pulled out her midline. Will attempt a peripheral IV placement and secure the sight well. (2) NSTEMI (non-ST elevated myocardial infarction): Status: Acute Assessment and plan: Echocardiogram attempted but unable to perform d/t pt being uncooperative. Acted fearful of the exam. Will need to attempt again after receiving ativan unless patient decides to refuse. Monitor on tele. Not a candidate for invasive therapy. Supportive therapy. Asa, statin. While lipids at goal, would still benefit from statin at this time since this may have been an acute event. (3) Staghorn renal calculus: Status: Acute Assessment and plan: as above (4) SADIE (acute kidney injury): Status: Acute Assessment and plan: In setting of dehydration but also stones. Cr improved to 1.8. Continue to encourage oral intake.. She was receiving IV fluids but has pulled out her midline. (5) Altered mental status: Status: Acute Assessment and plan: Acute on what sounds like chronic. Treat UTI. Hydrate. Continue thiamine (since she has been so malnourished; no hx of EtOH). Obtain MRI brain when kidney function permits contrast. Due to word finding difficulties, I did consult speech therapy. COnsider neurology consult, on inpatient vs outpatient basis, depending on the MRI results. (6) Dehydration: Start date: 12/31/22 Status: Acute Assessment and plan: Continue IVF (7) Hypercalcemia: Start date: 12/31/22 Status: Resolved Assessment and plan: I agree that dehydration is likely a part of this, but we cannot rule out malignancy. Vitamin D not high, so ok to continue supplementation. (8) Malnutrition: Status: Acute Assessment and plan: BMI of 16.2 kg/m2. Nutrition consulted. Encourage protein shakes. Concern for malignancy - for CT chest/abdomen/pelvis once Cr permits. Additionally, there may be a component of a mental health issue or dementia. Palliative care is consulted. Consider mirtazapine. 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 Once her SADIE is better, will need MRI brain w/w/o contrast, CT chest/abdomen/pelvis w/ contrast. We do not know if she has had a colonoscopy - she does have a diagnosis of IBS, but if she had a colonoscopy, per daughter it would have been in the 80s. She has not been up to date on her mammograms. She does smoke. (10) Cigarette smoker: Status: Chronic Assessment and plan: Provide nicotine replacement. (11) IBS (irritable bowel syndrome): Status: Chronic Assessment and plan: As above Symptomatic management (12) Rheumatoid arthritis: Status: Chronic Assessment and plan: Not on treatment. The patient has been resistant to therapy. I did write for voltaren gel for her hands to see if the patient would be interested in this. I have also added an OT consult to see if any devices can be used to make eating easier for her. (13) DVT prophylaxis: Status: Acute Assessment and plan: Sc heparin (14) Discharge planning issues: Status: Acute Assessment and plan: Full code Palliative care consulted Disposition dependent on results of the workup. Subjective Subjective Patient reports: afebrile; denies diarrhea, vomiting or shortness of breath Interval history since last seen: Pt napping. Appears comfortable. Earlier she was not cooperative with echocardiogram so it was cancelled. Later she pulled her midline out. Exam Narrative Exam Narrative: General: A very frail female, cachectic, appears older than her stated age. Asleep. HEENT: MMM, pentecostal wasting, poor dental hygiene. Heart: RRR, + both systolic and diastolic murmurs Lungs: CTAB Abdomen: soft, nontender, nonistended Extremities: no edema BLEs, contracted hands B. Objective Last Vital Signs Temp 36.6 C 01/04/23 11:52 Pulse 74 01/04/23 11:52 Resp 18 01/04/23 11:52 BP 126/75 01/04/23 11:52 Pulse Ox 100 01/04/23 15:06 Laboratory Results - last 24 hr 01/04/23 01/04/23 05:45 05:45 WBC 9.77 RBC 2.91 L Hgb 8.9 L Hct 25.6 L MCV 88 MCH 30.6 MCHC 34.8 RDW 14.4 Plt Count 324 MPV 8.1 Immature Gran % 0.7 Neutrophils % 67.8 Lymphocytes % 20.3 Monocytes % 6.6 Eosinophils % 4.2 Basophils % 0.4 Nucleated RBC % 0.0 Absolute Neutrophils 6.63 Absolute Lymphocytes 1.98 Absolute Monocytes 0.64 Absolute Eosinophils 0.41 Absolute Basophils 0.04 Sodium 135 L Potassium 3.2 L Chloride 107 Carbon Dioxide 18.2 L Anion Gap 9.8 BUN 14 Creatinine 1.8 H Est GFR (CKD-EPI 2020) 30.12 Glucose 92 Calcium 10.3 H Magnesium 1.4 L Time Spent with Patient Time Spent with Patient: 25-34 minutes Time was spent: preparing to see the patient(eg.review tests), obtaining and/or reviewing separately otained hiistory, ordering medications,tests, procedures, referring, communicating with other health healthcare administration intern, indepentently interpreting results, counseling the patient and care coordination
--- NOTE | 2023-01-05 | DI.CT_ITS ---
Exam(s) CT CHEST/ABD/PEL W EXAM: CT CHEST/ABD/PEL W CLINICAL HISTORY: Elevated calcium, wt loss, cancer concerns TECHNIQUE: Imaging Protocol: Axial computed tomography images with coronal and sagittal reformatted images were created and reviewed CONTRAST MATERIAL: Intravenous: Omnipaque 350 contrast volume:65 mL Oral: No COMPARISON: CT CT ABDOMEN PELVIS WO from 12/31/2022 FINDINGS: The examination is limited due to patient motion artifact. CHEST: Tracheobronchial tree: Patent where visualized. Pulmonary parenchyma: Emphysematous changes are present in the lungs. There are moderate size bilate ral pleural effusions and subjacent infiltrates which may represent atelectasis or pneumonia. Visualized thyroid gland: Unremarkable. Mediastinum and Sara: No dominant adenopathy or fluid collection. The esophagus is unremarkable. The re is a moderate size hiatal hernia. Pleura: There is no pneumothorax. Heart: The heart is not dilated. Three vessel coronary artery calcification is present. No pericardi al effusion. Pulmonary arteries: No pulmonary emboli are identified. Aorta: Atherosclerosis. There is atherosclerosis and thrombus seen in the left brachiocephalic arter y causing near complete occlusion. Lymph nodes: Within normal limits. Soft tissues: Unremarkable. Bones:There is a sclerotic focus in the lateral aspect of the right 7th rib. There does appear to be periosteal calcification. There is also sclerotic focus seen in in the T4 vertebral body. ABDOMEN: Liver: Normal density. No measurable mass. Portal, Superior Mesenteric, and Splenic Veins: Unremarkable. Gallbladder and Biliary Tract: Cholelithiasis. No significant biliary ductal dilatation. Pancreas: Normal density, no abnormal calcifications or inflammatory process. Spleen: Normal. Adrenals: No masses seen. Kidneys: Normal size, contour and axis. There are bilateral renal stones including a large staghorn c alculus in the left kidney. Stable simple renal cysts. No follow-up is recommended. There is a sim ple cyst in the right kidney. No follow-up is recommended. Abdominal Aorta: No evidence of an abdominal aortic aneurysm. Atherosclerosis. Bowel: There is diverticulosis of the colon without evidence of acute diverticulitis. There is no ev idence of bowel obstruction or bowel wall thickening. Appendix is unremarkable. Peritoneal Cavity: There is a trace amount of fluid in the cul-de-sac. No free air. Lymph Nodes: Within normal limits. Bones: Within normal limits for the patient's age. Grade 1 anterolisthesis of L5 on S1 is noted. Soft Tissues: Unremarkable. There is again seen a peripherally calcified fluid collection adjacent to the left greater trochanter. PELVIS: Bladder: Symmetric distention, no gross wall thickening. Reproductive Organs: Unremarkable as visualized. Lymph Nodes: Within normal limits. Bones: Within normal limits. IMPRESSION: 1. Moderate bilateral pleural effusions and subjacent infiltrates which may represent atelectasis or pneumonia. 2. 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 3. Sclerotic focus in the right 7th rib and the T4 vertebral body. Bone scan is suggested for furthe r evaluation. 4. No acute abdominal or pelvic process. 5. Cholelithiasis without evidence of biliary ductal dilatation. 6. Bilateral renal calculi including a large left left staghorn calculus. No hydronephrosis. 7. Colonic diverticulosis without evidence of acute diverticulitis. Unexpected findings RADIATION DOSE DELIVERED: 915.93mGy.cm Total DLP DATA REPOSITORY: All CT scans at this facility are submitted to the National Radiology Data Registry (NRDR) Dose Index Registry (DIR) with the [employer] (ACR). RADIATION OPTIMIZATION: All CT scans at this facility use at least one of these dose optimization te chniques: automated exposure control; mA and/or kV adjustment per patient size (includes targeted exa ms where dose is matched to clinical indication); or iterative reconstruction.
[2023-01-05 00:10] VITALS: BP 117/60; PULSE 82; RESP 16; TEMP 37.2; O2SAT 95
[2023-01-05 07:19] VITALS: BP 100/61; PULSE 79; TEMP 37; O2SAT 95
[2023-01-05 08:13] LABS: Anion Gap 8.6 mmol/L (3-11); BUN 14 mg/dL (7-18); CO2 21.4 mmol/L (21.0-32.0); CREATININE 1.7 mg/dL (0.55-1.02); Calcium 11.1 mg/dL (8.5-10.1); Chloride 107 mmol/L (98-107); Estimated GFR 32.26 (mL/min/1.73m2); Glucose 93 mg/dL (74-106); Potassium 3.5 mmol/L (3.5-5.1); Sodium 137 mmol/L (136-145)
[2023-01-05] MEDS: Cholecalciferol (Vitamin D3) 1,000 UNIT TAB 1000 UNITS PO (08:46)
[2023-01-05] MEDS: Aspirin 81 MG CHEW PO (08:46)
[2023-01-05] MEDS: Multivitamin w/Minerals TAB 1 TAB PO (08:46)
[2023-01-05] MEDS: Diclofenac 1% Gel 100 GM TUBE TP ×2 (08:48→15:28)
[2023-01-05] MEDS: Heparin 5,000 UNITS/ML VIAL 5000 UNITS SC ×2 (08:49→21:24)
[2023-01-05 10:32] LABS: Lyme Ab w Rflx to Lyme Confirm Negative (Negative)
[2023-01-05] MEDS: LORazepam 2 MG/1 ML Oral Concentrate 0.5 MG PO ×2 (10:34→21:24)
--- NOTE | 2023-01-05 10:45 | PT.INNT ---
PT Notes Visit Reasons: Dehydration, UTI, Failure to Thrive Pt approached for therapy this morning 10:50 am but was not available due to pt scheduled to go down for CT scan at 11:00am.
--- NOTE | 2023-01-05 11:01 | CMPROGNOTE_ITS ---
Date of service: 01/05/23 Time of Service: 11:01 Care Management Progress Note Progress Note Text Progress Note Text: S/O: Bren was lying in bed when CM met with her today, with her daughter, Leni, present. Bren stated that she feels better today, and appeared to be in good spirits. Leni stated that staff was able to get an IV in, and Bren had her CT scan earlier today. She is waiting to hear the results from the MD. Per MD, Bren is nearing discharge readiness, as any additional studies will likely have to be scheduled outpatient, if the patient wishes to purse them, although they may not alter her treatment. Palliative care will see her again tomorrow to discuss her goals of care. CM will continue to follow. A: Bren is a 67 year old female admitted to [facility] on 12/31/22 for dehydration, UTI, FTT. P: Anticipate Bren will return home once medically cleared with new orders for services. Her daughter, Vicky, will continue to care for her at home. Palliative care is meeting with Bren and Vicky to discuss goals of care. She will follow up with her PCP and discharge plan of care. CM will continue to follow.
[2023-01-05] MEDS: Normal Saline - Diluent 50 ML VIAL IJ (11:21)
[2023-01-05] MEDS: Omnipaque 350 MG/ML 100 ML BTL IJ (11:22)
[2023-01-05] MEDS: Lactated Ringers 250 ML IV (11:32)
[2023-01-05] MEDS: Normal Saline Flush 10 ML SYR IVP ×2 (11:33→15:28)
[2023-01-05] MEDS: Furosemide 20 MG/2 ML VIAL IVP (15:27)
[2023-01-05] MEDS: cefTRIAXone 1 GM/50 ML BAG IVPB (17:20)
--- NOTE | 2023-01-05 18:38 | PGE_ITS ---
Date of Service Date of service: 01/05/23 Time of Service: 18:38 Assessment and Plan Assessment and plan (1) Urinary tract infection: Start date: 12/31/22 Status: Acute Assessment and plan: Present on admission. Urine C&S from 12/22/22 grew E. Coli and GPC. E. coli was sensitive to ceftriaxone. The patient has not been able to provide a noncontaminated sample here, has been incontinent, and a straight cath sample will be too traumatic for her. Seen by urology: if interested in treatment, would need a percutaneous nephrolithotomy. Continue empiric ceftriaxone. She pulled out her midline. A peripheral IV inserted 01/05. (2) NSTEMI (non-ST elevated myocardial infarction): Status: Acute Assessment and plan: Echocardiogram attempted but unable to perform d/t pt being uncooperative. Acted fearful of the exam. Will need to attempt tomorrow; patient today stated she would be agreeable. Monitor on tele. Not a candidate for invasive therapy. Supportive therapy. Asa, statin. While lipids at goal, would still benefit from statin at this time since this may have been an acute event. (3) Staghorn renal calculus: Status: Acute Assessment and plan: as above (4) SADIE (acute kidney injury): Status: Acute Assessment and plan: In setting of dehydration but also stones. Cr improved to 1.7 Continue to encourage oral intake.. (5) Altered mental status: Status: Acute Assessment and plan: Acute on what sounds like chronic. Treat UTI. Hydrate. Continue thiamine (since she has been so malnourished; no hx of EtOH). Obtain MRI brain when kidney function permits contrast. Due to word finding difficulties. speech therapy. COnsider neurology consult, on inpatient vs outpatient basis, depending on the MRI results. (6) Dehydration: Start date: 12/31/22 Status: Acute Assessment and plan: Oral hydration stressed. (7) Hypercalcemia: Start date: 12/31/22 Status: Resolved Assessment and plan: Concerns of potential malignancy as etiology. CT chest/abd/pelvis did not show any malignancy/mass. Vitamin D not high, so ok to continue supplementation. (8) Malnutrition: Status: Acute Assessment and plan: BMI of 16.2 kg/m2. Nutrition consulted. Encourage protein shakes. Concern for malignancy as above. Additionally, there may be a component of a mental health issue or dementia. Palliative care is consulted. Consider mirtazapine vs marinol. Would be concerned with potential alteration in mentation d/t either of these medications however. 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 Once her SADIE is better, will need MRI brain w/w/o contrast, CT chest/abdomen/pelvis w/ contrast. We do not know if she has had a colonoscopy - she does have a diagnosis of IBS, but if she had a colonoscopy, per daughter it would have been in the 80s. She has not been up to date on her mammograms. She does smoke. (10) Cigarette smoker: Status: Chronic Assessment and plan: Provide nicotine replacement. (11) IBS (irritable bowel syndrome): Status: Chronic Assessment and plan: As above Symptomatic management (12) Rheumatoid arthritis: Status: Chronic Assessment and plan: Not on treatment. The patient has been resistant to therapy. Cont voltaren gel for her hands I have also added an OT consult to see if any devices can be used to make eating easier for her. (13) DVT prophylaxis: Status: Acute Assessment and plan: Sc heparin (14) Discharge planning issues: Status: Acute Assessment and plan: Full code Palliative care consulted To home potentially tomorrow. Subjective Subjective Patient reports: afebrile; denies diarrhea, nausea, vomiting or shortness of breath Interval history since last seen: More interactive with me today. Exam Narrative Exam Narrative: General: A very frail female, cachectic, appears older than her stated age. Smiling and more interactive. Confused HEENT: MMM, anabaptist wasting, poor dental hygiene. Heart: RRR, + both systolic and diastolic murmurs Lungs: CTAB Abdomen: soft, nontender, nonistended Extremities: no edema BLEs, contracted hands B. Objective Last Vital Signs Temp 37.0 C 01/05/23 07:19 Pulse 79 01/05/23 07:19 Resp 16 01/05/23 00:10 BP 100/61 01/05/23 07:19 Pulse Ox 95 01/05/23 07:19 Laboratory Results - last 24 hr 01/03/23 01/05/23 06:40 08:00 Sodium 137 Potassium 3.5 Chloride 107 Carbon Dioxide 21.4 Anion Gap 8.6 BUN 14 Creatinine 1.7 H Est GFR (CKD-EPI 2020) 32.26 Glucose 93 Calcium 11.1 H Lyme Disease Antibody Negative Time Spent with Patient Time Spent with Patient: 25-34 minutes Time was spent: preparing to see the patient(eg.review tests), obtaining and/or reviewing separately otained hiistory, ordering medications,tests, procedures, referring, communicating with other health home health care case manager, indepentently interpreting results, counseling the patient and care coordination
[2023-01-05] MEDS: Atorvastatin 40 MG TAB PO (21:23)
[2023-01-05 22:00] VITALS: BP 90/66; PULSE 86; RESP 16; TEMP 36.6; O2SAT 94
[2023-01-06 07:33] LABS: Anion Gap 8.7 mmol/L (3-11); BUN 13 mg/dL (7-18); CO2 23.3 mmol/L (21.0-32.0); CREATININE 1.8 mg/dL (0.55-1.02); Calcium 10.5 mg/dL (8.5-10.1); Chloride 103 mmol/L (98-107); Estimated GFR 30.12 (mL/min/1.73m2); Glucose 74 mg/dL (74-106); Sodium 135 mmol/L (136-145)
[2023-01-06 07:36] LABS: Potassium 2.8 mmol/L (3.5-5.1)
[2023-01-06 07:38] VITALS: BP 90/55; PULSE 70; RESP 16; TEMP 36.8; O2SAT 94
[2023-01-06] MEDS: Heparin 5,000 UNITS/ML VIAL 5000 UNITS SC (08:00)
[2023-01-06] MEDS: Multivitamin w/Minerals TAB 1 TAB PO (08:00)
[2023-01-06] MEDS: Aspirin 81 MG CHEW PO (08:00)
[2023-01-06] MEDS: Cholecalciferol (Vitamin D3) 1,000 UNIT TAB 1000 UNITS PO (08:00)
--- NOTE | 2023-01-06 08:50 | OT.INNT ---
Occupational Therapy Notes 01/06/23 OT attempted to see pt who was out of room for testing. OT will resume services tomorrow. Kate Hdez, OTR/L
[2023-01-06] MEDS: Potassium Chloride Liquid 20 MEQ PKT 40 MEQ PO (09:32)
[2023-01-06] MEDS: Magnesium Gluconate 500 MG TAB PO (09:32)
[2023-01-06 11:10] VITALS: BP 96/65; PULSE 77; RESP 16; TEMP 36.5; O2SAT 91
--- NOTE | 2023-01-06 11:20 | DSE_ITS ---
Date of service: 01/06/23 Time of Service: 12:01 DS: Diagnosis Discharge Diagnosis (1) Urinary tract infection: Status: Acute Asessment and Plan: Urine C&S from 12/22/22 grew E. Coli and GPC. E. coli was sensitive to ceftriaxone. The patient has not been able to provide a noncontaminated sample here, has been incontinent, and a straight cath sample will be too traumatic for her. Seen by urology: if interested in treatment, would need a percutaneous nephrolithotomy. Finished a 5 day course of rocephin. (2) NSTEMI (non-ST elevated myocardial infarction): Status: Acute Asessment and Plan: No EKG changes. Limited echocardiogram d/t patient being uncomfortable with the exam showed a no rmal EF. Not a candidate for invasive therapy; patient, as well, has not pursued any medical treatment for an extended number of years and does not wish to continue medical care but has aquiesced to her daughters promptings. (3) Staghorn renal calculus: Status: Acute Asessment and Plan: As above. (4) SADIE (acute kidney injury): Status: Acute Asessment and Plan: Initial creatinine 2.5; 1.8 on day of d/c. Pt has had very poor oral intake. She did eat more for breakfast on the AM of discharge than she has throughout this stay. (5) Altered mental status: Status: Acute Asessment and Plan: LIkely dementia that is progressing. Some improvement. (6) Hypercalcemia: Status: Resolved Asessment and Plan: Persisted even with IV hydration. CT chest/abd/pelvis obtained to look for a potential malignant cause. No acute abd or pelvic process but there were 2 sclerotic foci; one in right 7th rib and one in T4 vertebral body. Given patients desire to avoid interventions, discuss with PCP the efficacy of a bone scan as outpt. (7) Malnutrition: Status: Acute Asessment and Plan: Daughter is her care giving and tries diligently to encourage pt to eat. Considered marinol or mirtazipine but because of the potential for either of these to cause some cognitive impairment neither initiated. Nutrition was consulted and gave suggestions. 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 (9) Cigarette smoker: Status: Chronic Asessment and Plan: Nicotine patch utilized during hospitalization. (10) Rheumatoid arthritis: Status: Chronic (11) DVT prophylaxis: Status: Acute Asessment and Plan: Not on treatment. The patient has been resistant to therapy. Cont voltaren gel for her hands OT consult to see if any devices can be used to make eating easier for her. (12) Discharge planning issues: Status: Acute Asessment and Plan: Palliative services. Discharge Plan Disposition Patient Disposition: Home W/Home Health Services Condition: Improving Discharge Details Reason For Visit: Dehydration, UTI, Failure to Thrive Admit Date/Time: 12/31/22 22:08 Admit Provider: Yaniv Chavez Attending Provider: Yaniv Chavez Primary Care Provider: Sangeeta Appiah Hospital Course Hospital Course: This is a 67-year-old lady who has been chronically deteriorating over the last 3 years worsening the last 3 months to 1 month and then was diagnosed with UTI recently initiated antibiotics but not improving.? She was brought to the ED by family after attempting a visit at her PCPs office where she was told to bring her to the ED for evaluation.? She lives with her daughter who has been trying to have the patient eat and drink better but have not succeeded with the patient stating that she wants to get better but then not participating in self-care.? She is unkempt but choice and mostly stays in bed watching TV.? She did lose her spouse 7 years ago and each year at the anniversary of his she seems more depressed.? She has not been expressing suicidal thoughts but does refuse self- care and appears to be frustrated in her family with waxing and waning wishes.? She is a full code at this time but living will status is being rediscussed.? The patient chronically has had poor dentition and this has not impeded her eating and drinking.? She does smoke daily and continues though this is decreased.? The patient offers no further history and the family is concerned about her weight loss from around 130 pounds down to 80 pounds.? She has never had a cardiac event within the ED was found to have elevated troponins along with dehydration with an elevated creatinine BUN as well as elevated alkaline phosphatase which may be secondary to her sedentary lifestyle recently.? She has had no peripheral edema are complaints of shortness of breath.? She did have foul-smelling urine but denies any other bowel or complaints.? She does have a depressed mood and did isolate herself since COVID which worsened her depression and lifestyle changes being withdrawn and not going out in public.? She has had severe rheumatoid arthritis with deformities of her upper extremities mostly and she has been wasting away with muscle strength and became more stiff with decreased activity and movement.? She takes no medications except Excedrin for pain and is on no chronic medical therapy. IV hydration initiated in the ED. D/T elevated WBC count and +UA, rocephin initiated. Admitted for further w/u. See diagnosis PCP follow up in 1-2 weeks. Home Meds and New Rx's Prescriptions: New diclofenac sodium 3 % Gel 100 g topical QID Qty: 100 0RF acetaminophen 325 mg Tablet 325 - 650 mg PO Q4H PRN PRNQty: 0 0RF cholecalciferol (vitamin D3) 25 mcg (1,000 unit) Tablet 1,000 units PO DAILY Qty: 0 0RF One Daily Multi-Vit w-Mineral 4.5 mg iron Tablet 1 tab PO DAILY Qty: 0 0RF Discharge Instructions Stand Alone Forms: Nursing Discharge Form Referrals: Sangeeta Appiah NP [Primary Care Provider] - 01/25/23 9:00 am Activity:: Activity as Tolerated Equipment/Supplies:: No Equipment Needed Diet:: As Tolerated Discharge Orders Discharge Orders: Discharge Order (Routine); Ordered 01/06/23 Ordered By: Chapin Pablo Discharge Data Discharge Date/Time-TO BE ENTERED AT DEPARTURE: 01/06/23 14:41 DS: Summary Time Spent with Patient providing and/or coordinating discharge services: Greater than 30 minutes Status at Discharge Functional status at discharge: bed bound Overall status at discharge: patient is back to baseline Mental Status: other (Cognitive decline) Speech and Movement: speech clear Mood: anxious mood (INtermittently) and other (Cognitive decline) Affect: normal affect Exam Narrative Exam Narrative: General: A very frail female, cachectic, appears older than her stated age. Smiling today. Ate some breakfast. HEENT: MMM, denominational wasting, poor dental hygiene. Heart: RRR, + both systolic and diastolic murmurs Lungs: CTAB Abdomen: soft, nontender, nonistended Extremities: no edema BLEs, contracted hands B. Psych Mental Status: other (Cognitive decline) Speech and Movement: speech clear Mood: anxious mood (INtermittently) and other (Cognitive decline) Affect: normal affect DS: Data Vitals/I&O Vitals and I&O: Vital Signs Temperature 36.5 C 01/06/23 11:10 Temperature Source Tympanic 01/06/23 11:10 Pulse 77 01/06/23 11:10 Pulse Rhythm Regular 01/05/23 21:00 Pulse 83 12/31/22 22:33 Respiratory Rate 16 01/06/23 11:10 Respiratory Effort Normal, Non-Labored 01/05/23 21:00 Respiratory Depth Normal 01/05/23 21:00 Respiratory Pattern Normal 01/05/23 21:00 Blood Pressure 96/65 L 01/06/23 11:10 Blood Pressure Mean 83 12/31/22 22:32 Blood Pressure Position Sitting 12/31/22 15:26 Pulse Oximetry 91 L 01/06/23 11:10 Oxygen Delivery Method Room Air 01/06/23 11:10 Oxygen Flow Rate 0 01/06/23 11:10 Pain Level 0 01/05/23 22:00 Comment pT asleep- family requested they not be woken for vs; RN informed 01/04/23 15:25 Intake & Output 01/05/23 01/05/23 01/06/23 11:59 23:59 11:59 Intake Total 100 / 100 250 / 250 Output Total 450 / 450 Balance -350 / -350 250 / 250 Intake: IV 250 / 250 Oral 100 / 100 Output: Urine 450 / 450 Other: Urine Color Yellow Yellow Yellow Urine Appearance Clear Clear Clear Urine Odor Normal Normal Comment unable to measure or tell color, mixed with stool Stool Size Small Stool Characteristics Liquid Voiding Methods Bedside Commode Bedside Commode Diaper Data Completed and Pending Labs on day of discharge: Labs from last 24 hours 01/06/23 06:25 Sodium 135 L Potassium 2.8 L* Chloride 103 Carbon Dioxide 23.3 Anion Gap 8.7 BUN 13 Creatinine 1.8 H Est GFR (CKD-EPI 2020) 30.12 Glucose 74 Calcium 10.5 H 01/05/23 05:29 Urine - Clean Catch Urine Culture - Pending Preliminary micro results at discharge 01/05/23 05:29 Urine Culture - Pending Urine - Clean Catch PFSH All Active Problems SADIE (acute kidney injury) (Acute) Malnutrition (Acute) Discharge planning issues (Acute) DVT prophylaxis (Acute) NSTEMI (non-ST elevated myocardial infarction) (Acute) Elevated troponin level not due myocardial infarction (Acute) Dehydration (Acute) Urinary tract infection (Acute) Altered mental status (Acute) Failure to thrive in adult (Chronic) Rheumatoid arthritis (Chronic) Declines medical treatment. Last saw [facility] in 2004 Nodular scleritis of left eye (Chronic) Hyperlipidemia (Chronic) IBS (irritable bowel syndrome) (Chronic) Staghorn renal calculus (Acute ~07/2018) Cigarette smoker (Chronic) Medical History Hematuria (~07/2018) Lyme disease Family History Mother , at 70 Liver cancer Hypertension Substance abuse Psoriatic arthritis Father , at 76 Alcohol abuse Heart disease Pulmonary fibrosis Rheumatoid arthritis Hypertension Sister Alcohol abuse Hyperlipidemia Sister Depression Brother Alcohol abuse Throat cancer Heart disease Myocardial infarction Son , at 36, fell of bridge while intoxicated No problems noted. Son Renal calculi Hypertension Son No problems noted. Daughter Anxiety Maternal Grandfather , at 64 Mesothelioma Maternal Grandmother , at 50 Alcohol abuse Heart disease Paternal Grandfather , at 78 No problems noted. Paternal Grandmother , at 67 of DC Heart disease Myocardial infarction Social History Smoking/Tobacco Use Status: Current-Occasional Tobacco Type: cigarettes Quit status: considering quitting Smoking risk assessment performed?: Yes Alcohol Intake: never Drug use: Never Substance use type: does not use Caregiver/Support person: No Household members: children Housing: house Communication Needs: None Do you need help understanding health information?: Never Pets and animals: No Sexually active: No Do you think of yourself as: straight/heterosexual Current gender identity: female What is your relationship status?: How often do you talk on the phone with friends or family?: once per week How often do you get together with friends or relatives?: three or more times per week How often do you attend religious or church services?: 4 or more times per year Do you belong to any clubs or organized social groups?: no Panel score (0-1 are the most socially isolated patients): 2 What type of physical activity do you participate in: walking Duration: 15-30 minutes/day Frequency: daily Wendy/Evangelical: Yazdanism Special wendy needs: No Seatbelt use: always Helmet use: Yes Helmet use: always Drive intox or ride w/intox equipment driver: No Do you feel safe at home: Yes Do you feel safe in your relationship?: Yes Female Reproductive History Menstrual Menopause type: natural History History 4 Para 4 Hx # Term Pregnancies Multiple births Hx # Pregnancies Ectopic pregnancies AB induced Hx Number of Living Children 3 AB spontaneous Time Spent with Patient Time Spent with Patient: 45-69 minutes Time was spent: preparing to see the patient(eg.review tests), obtaining and/or reviewing separately otained hiistory, ordering medications,tests, procedures, referring, communicating with other health home health care case manager, indepentently interpreting results, counseling the patient and care coordination
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
--- NOTE | 2023-01-06 12:55 | PDOC.HHF2F ---
Home Health Referral Home Health Orders Clinical synopsis of why skilled professionals are needed: Pt has been declining at home; not eating/drinking adequately. More confused. Daughter is her caregiver. Found to have SADIE, questionable UTI but culture grew gram positive nita. She refused meds, procedures intermittently. Pt has RA with severly deformed hands. Medical diagnosis necessitation home health referral: Failture to thrive. Ambulatory dysfunction from weakness. Only transfers. Registered Nurse: Check all that apply Instruct on new or changed medication(s)/assess compliance: Ordered Physical Therapist: Check all that apply Increase strength & endurance for safe mobility at home: Ordered Occupational Therapist: Evaluate and treat for patient unable to perform ADL/IADL/self-care: Ordered Motion Study Analyst: Assist with community resources: Ordered Assist with night clerk care planning: Ordered Home Bound Status Requires the aid of supportive device (check all that apply): Wheelchair Patient has a condition such that leaving home is medically contraindicated (Describe): Pt only transfers with assistance. Nonambulatory. Describe why leaving home would require a considerable and taxing effort: Confusion Encounter Date and Reason: I certify that a FTF encounter for this patient was performed on January 06, 2023 and that such encounter was related to the primary reason the patient requires home health services. The encounter was conducted in the following manner: By me as the certifying physician, PATTERN MARKING SUPERVISOR, PA or By an inpatient physician, PATTERN MARKING SUPERVISOR or PA during an inpatient stay who communicated findings to me, Certification And Authentication I certify that I composed the above information based on my clinical judgment relating to this patient's medical condition and, if applicable, clinical findings communicated to me by the NPP or inpatient physician who performed the FTF encounter. Name of Provider that will be monitoring home health services: Chapin Pablo
--- NOTE | 2023-01-06 15:57 | PDOC.CMDIS ---
Date of service: 01/06/23 Time of Service: 15:57 LACE Index Scoring Tool Questions: Length of Stay (in days): 4 - 6 Was the patient admitted via the E.D.?: Yes Comorbidities: Previous M.I. E.D. Visits: 0 Answers: Total Score: 8 Risk of Readmission: Low Risk Care Management Discharge Plan Reason for Hospitalization: Dehydration, UTI, Failure to Thrive Discharge Plan: Bren returned home today with new orders for HH RN, PT, OT, TERRITORY ACCOUNT EXECUTIVE. Her daughter, Leni, drove her home via private vehicle. She will follow up with her PCP and discharge plan of care. She is happy to be going home. Patient/Family Education Needs: Review discharge instructions and limitations, discussion of self care needs including ask me three. Services Needed at Discharge: Home Health Care Services (new HH RN, PT, OT, TERRITORY ACCOUNT EXECUTIVE)
[2023-01-06 20:02] LABS: Anaplasma phagocytophilum Negative (Negative); B. miyamotoi PCR Negative (Negative); Babesia divergens/MO-1 Negative (Negative); Babesia duncani Negative (Negative); Babesia microti Negative (Negative); Ehrlichia chaffeensis Negative (Negative); Ehrlichia ewingii/canis Negative (Negative); Ehrlichia muris eauclairensis Negative (Negative)
--- NOTE | 2023-01-07 08:37 | OTDS_ITS ---
Occupational Therapy Notes Occupational Therapy Inpatient Discharge Summary Date: 01/04/23 Dates of Service: 01/04/23-01/06/23 Referring Doctor: Lorrie Huff MD OT Orders: Non Urgent Precautions: Fall, Standard, Full *This document serves as a summary of care, no skilled OT services were provided for this documentation on this date and this note is a reflection based on initial evaluation assessment* PATIENT PROFILE/ADMITTING DIAGNOSIS: Pt is a 67 year old female who was admitted through the ED with the following dx of SADIE, malnutrition, NSTEMI, hypercalcemia, elevated tropinin level, dehydration, UTI, altered mental status, failure to thrive as an adult, rheumatoid arthritis, nodular scleritis (L) eye, hyperlipidemia, IBS, staghorn renal calculus, smoker. Past Medical History: All Active Problems Hypercalcemia (Acute) Elevated troponin level not due myocardial infarction (Acute) Dehydration (Acute) Urinary tract infection (Acute) Altered mental status (Acute) Failure to thrive in adult (Chronic) Rheumatoid arthritis (Chronic) Declines medical treatment. 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 She reports that her moms hands are deformed from an RA issue. Pts daughter reports that she (A) her mom with most of her ADLs. She does note f alls in the home in which her mom won't go into the shower. Pts daughter states that someone is in the home 24 hours a day with pt except when performing grocery shopping. Pts appearance is not well kept. She has long fingernails in which her daughter states that she cuts her moms nails but her mom has not let her for a while now. Her hair is visibly dirty and her daughter says multiple times throughout each session that they have all the adaptive equipment that they need. Pt does not answer a lot of the questions her daughter does tend to speak for her. OT does ask pt if she would like to be more (I) with her ADLs or if she feels that she is at her baseline. She reports yes and then the daughter paraphrases to her mom do you feel like I give you enough help. OT and pts daughter discuss HH which pt seemed receptive to but daughter did not. Equipment owned/DME: Per pts daughter report pt has FWWs, grab bars, raised toilet seat, commode in the basement which they don't use, shower bench. SUBJECTIVE:?NT OBJECTIVE:? ROM: RUE Limited ROM in (B) with contracted digits and lack of functional control of digits d/t contractures L UE Limited ROM in (B) with contracted digits and lack of functional control of digits d/t contractures STRENGTH: RUE 3/5 with notable weak dental hygienist mobile coordinator LUE? 3/5 with notable weak dental hygienist mobile coordinator FUNCTIONAL MOBILITY/ADLS:? *Based on initial evaluation- no skilled services provided for this date* EATING Pt was eating with her daughter present when OT arrived. Her daughter was feeding her but states that she can hold silverware in her hand. Pt was not able to demonstrate this (I) this morning. Her contracted nature of her hands is a big limiting factor of her (I). BALANCE: Static sitting Good Dynamic Sitting Good ASSESSMENT:?? Patient is a 67-year-old female referred to occupational therapy services with diagnosis of SADIE, malnutrition, NSTEMI, hypercalcemia, elevated tropinin level, dehydration, UTI, altered mental status, failure to thrive as an adult, rheumatoid arthritis, nodular scleritis (L) eye, hyperlipidemia, IBS, staghorn renal calculus, smoker. Patient was seen for OT consult only and then out of room for testing on the other day. Pt was discharged home and medically cleared per MD on 01/06/23. GOALS- not met as pt was seen for OT consult only 1.? Oral hygiene (I) in seated positio 2.? Dressing (I) UE and mod (A) LE 3.? Bathing (I) UE and min (A) LE 4.? Toileting on toilet min (A) 5.? Eating (I) PLAN OF CARE/TREATMENT PLAN: 1x/day, 3 days/ week x 1week Initiate Occupational Therapy Services for bathing, dressing, grooming, toileting, eating, transfer training. DISCHARGE RECOMMENDATIONS SNF vs. home with HH services when medically cleared per MD and based on pts progress towards goals established. TREATMENT TIME/MINUTES/CODES N/A Kate Hdez OTR/L [facility] [place], [place]
[2023-01-07 15:53] LABS: PTH-Related Peptide 3.9 pmol/L (< or = 4.2)
--- NOTE | 2023-01-11 12:58 | INDS_ITS ---
PT Notes Visit Reasons: Dehydration, UTI, Failure to Thrive Physical Therapy Inpatient Discharge Summary Dates of Service: 01/01/2023 - 01/07/23 Date: 01/11/23 Referring Doctor: Lorrie Huff MD PT Orders: PT CONSULT: Limited ability Precautions: Fall. Standard. Activity as tolerated. This document serves as a summary of care. No PT services were provided on this date. Patient Profile/Admitting Diagnosis: Patient is a 67-year-old female patient admitted for management of dehydration, UTI, hypercalcemia, elevated troponin, and failure to thrive. Patient was seen for 2 sessions of PT intervention over the course of 6 days. They were able to demonstrate safety and mobility sufficient to allow for safe return home with family support. 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 Last saw [facility] in 2004 Nodular scleritis of left eye (Chronic) Hyperlipidemia (Chronic) IBS (irritable bowel syndrome) (Chronic) Staghorn renal calculus (Acute ~07/2018) Cigarette smoker (Chronic) Medical History?(Updated 12/31/22 @ 23:38 by Yaniv Chavez) Hematuria (~07/2018) Lyme disease Social History/Home Situation: Patient lives in a private home with 5 steps to enter. Daughter is 24/7 care program resident. Due to progressive degeneration of multiple joints, patient is now only able to perform transfer and has spent most of her time in bed. Bed height at home is tall. Patient has used a rolling office chair to get from bed to bathroom and had been able to transfer with daughter each time. Equipment Owned/DME: Walking sticks Subjective: none obtained Objective: ROM: Right Upper Extremity: Shoulder Flexion WFL. Shoulder abduction WFL. Elbow flexion WFL. Wrist flexion 10 degrees to 20 degrees. Wrist extension to neutral only. Functional opening and closing of hand limited. Left Upper Extremity: Shoulder Flexion WFL. Shoulder abduction WFL. Elbow flexion WFL. Wrist flexion 10 degrees to 20 degrees. Wrist extension to neutral only. Functional opening and closing of hand limited. Right Lower Extremity: Hip flexion about 60 degrees. Hip abduction about 20 degrees. Knee flexion about 40 degrees. Ankle dorsiflexion to neutral only. Ankle plantarflexion about 20 degrees. Left Lower Extremity: Hip flexion about 60 degrees. Hip abduction about 20 degrees. Knee flexion about 40 degrees. Ankle dorsiflexion to neutral only. Ankle plantarflexion about 20 degrees. 4- Strength: Right Upper Extremity: Shoulder flexors 3/5. Shoulder abductors 3/5. Elbow flexors 3/5. Elbow extensors 3/5. Rubber Tire And Tubes Supervisor weak and minimally functional. Left Upper Extremity: Shoulder flexors 3/5. Shoulder abductors 3/5. Elbow flexors 3/5. Elbow extensors 3/5. Rubber T[employer] And Tubes Supervisor weak and minimally functional. Right Lower Extremity: Hip flexors 3-/5. Hip abductors 3-/5. Knee flexors 3-/5. Knee extensors 3-/5. Ankle dorsiflexors 3-/5. Ankle plantarflexors 3-/5. Left Lower Extremity: Hip flexors 3-/5. Hip abductors 3-/5. Knee flexors 3-/5. Knee extensors 3-/5. Ankle dorsiflexors 3-/5. Ankle plantarflexors 3-/5. BED MOBILITY/TRANSFERS?Rolling L/R:mod A of 1 ?Supine-sit: mod A of 1 ?Sit-supine: mod A of 1 ?Sit-stand: max A x2 ?Stand-sit: Max A x2 ? Provided skilled?cues and instruction on performance and technique throughout. ? Balance: Static Sitting: Poor Dynamic Sitting: Poor Static Standing: Poor Dynamic Standing:Poor Assessment: For the past 2-3 years patient has been bed-ridden with occasional ability to transfer to and from chair for toileting activities. She participated in only 2 PT sessions during her acute care stay, and continues to require 24/7 care. She was able to discharge home, and recommend continued PT intervention via HH PT to maximize mobility and safety. Goals: Goals X1 week 1. Supine-Sit independent (NOT MET) 2. Sit-Supine independent(NOT MET) 3. Sit-Stand independent(NOT MET) 4. Stand-Sit contact guard assist with FWW(NOT MET) 5. Bed-Chair contact guard assist with FWW(NOT MET) 6. Chair-Bed contact guard assist with FWW(NOT MET) 7. Minimal assist with gait on level surface with use of FWW for at least 15 steps without report of pain nor dyspnea(NOT MET) 8. Minimal assist with stair negotiation while holding onto B rails for at least 5 steps without report of pain nor dyspnea(NOT MET) 9. Fair static and dynamic standing balance/tolerance(NOT MET) Plan of Care/Treatment Plan: D/C from PT in acute care setting DISCHARGE RECOMMENDATIONS: [] Home with no services [] [] Home with services [specify] [] Home with outpatient PT [] [] SNF for continued rehabilitation [] [] [facility] [] [] SNF versus LTC based on ability to participate and progress [] [X] PT with continued family support TREATMENT CODE/TIME: none Thank you for the opportunity to participate in the care of this patient. Regla Horner PT, DPT [facility] [place], [place]
[2023-01-14 19:30] LABS: PTH AB NEGATIVE (NEGATIVE)
== END 2023-01-06 14:41 | disposition home health service (06) | DRG 280 ==
LOC: ER 21:56 → MS 01-01 00:23
PROVIDERS: Family Medicine; Internal Medicine; Admitting Provider Family Medicine; Emergency Provider Emergency Medicine; PCP Nurse Practitioner Family; Visit Provider Family Medicine
DX: I21.4 Non-ST elevation (NSTEMI) myocardial infarction; E43 Unspecified severe protein-calorie malnutrition; N17.9 Acute kidney failure, unspecified; N39.0 Urinary tract infection, site not specified; Z68.1 Body mass index [BMI] 19.9 or less, adult; J98.11 Atelectasis; R64 Cachexia; E86.0 Dehydration; R74.8 Abnormal levels of other serum enzymes; F17.210 Nicotine dependence, cigarettes, uncomplicated; M06.9 Rheumatoid arthritis, unspecified; R53.1 Weakness; Z79.01 Long term (current) use of anticoagulants; J44.9 Chronic obstructive pulmonary disease, unspecified; F01.50 Vascular dementia, unspecified severity, without behavioral disturbance, psychotic disturbance, mood disturbance, and anxiety; G30.9 Alzheimer's disease, unspecified; F02.80 Dementia in other diseases classified elsewhere, unspecified severity, without behavioral disturbance, psychotic disturbance, mood disturbance, and anxiety; K58.9 Irritable bowel syndrome, unspecified; E78.5 Hyperlipidemia, unspecified; H15.092 Other scleritis, left eye; N20.0 Calculus of kidney; B96.20 Unspecified Escherichia coli [E. coli] as the cause of diseases classified elsewhere; R41.82 Altered mental status, unspecified; R32 Unspecified urinary incontinence; R60.0 Localized edema; F32.A Depression, unspecified
CPT/HCPCS: 36410; 36415; 74177; 80048; 80053; 80061; 82306; 82533; 82805; 83519; 84145; 85027; 87077; 87798; 93005; 93308; 96361; 96374; 97162; 97166; 97530; 99221; 99232; 99285; 70450; 71046; 71260; 74176; 76705; 81003; 81015; 82140; 82330; 82397; 82607; 82728; 82746; 83540; 83550; 83605; 83735; 83930; 84443; 84484; 85025; 86140; 86618; 87086; 87186; 93010; 99223; 99233; 99239; J0696; J1644; J1941; J3480; J3490

== ENCOUNTER → 2023-01-01 07:46 | Outpatient (BNVA) | payer MEDICARE, SELFPAY | PROVIDERS: PCP Nurse Practitioner Family; Referring Provider Nurse Practitioner Family; Visit Provider Internal Medicine Cardiovascular Disease ==

== ENCOUNTER → 2023-01-01 07:47 | Outpatient (BNVA) | payer MEDICARE, SELFPAY | PROVIDERS: PCP Nurse Practitioner Family; Referring Provider Nurse Practitioner Family; Visit Provider Urology ==